=== PATIENT | male | born 1965 | race African-American/Black ===

== ENCOUNTER 2016-09-16 10:59 | Emergency (ER) | payer OTHER ==
[2016-09-16 11:08] VITALS: TEMP 98.2; BMI 32.5
[2016-09-16] MEDS ORDERED: ASPIRIN 81 MG CHEWABLE TABLETS PO ONE (12:06)
[2016-09-16] MEDS ORDERED: NITROGLYCERIN SUBLINGUAL 1/150 0.4 MG TAB SL PRN (12:07)
--- NOTE | 2016-09-16 12:26 | PDOC ---
[id number] Source: Patient Exam Limitations: No Limitations - History of Present Illness Presenting Symptoms: Chest Pain, Nausea, Short of Breath (left sided with palpitations) Timing/Duration: reports: constant (pressure like sensation left chest since last night constant with intermittent sharp pain left sided chest), getting worse Severity/Quality: reports: moderate, pressure (constant since last night ), other (sharp poke like pain intermittent left chest since last night with palpitations). denies: dull, ingestion, tearing, tightness Location: reports: substernal Chest Pain Radiation: reports: no radiation Activities at Onset: reports: none Prior Chest Pain/Cardiac Workup: reports: Cardiac Cath. denies: Pulmonary Embolism Modifying Factors: improves with: other (nothing ) Nitro Today/Relief: Yes: no nitro taken today Aspirin Received prior to arrival (Core Measure): Yes: no aspirin today Beta Felicia given by EMS (Core Measure): No (took this am metropolol ) Beta Felicia taken at Home (Core Measure): Yes (metoprolol 25 mg this ma) Beta Felicia indicated at this time? (Core Measure): No Associated Symptoms: Yes: Chest Pain/pressure, Nausea (has had for one month worse since yesterday ), Palpitations, Shortness of Breath <Sophie Link - Last Filed: 09/18/16 19:40> - General Chief Complaint: Chest Pain Stated Complaint: CHEST PAIN, RAPID HEARTBEAT Time Seen by Provider: 09/16/16 11:51 - History of Present Illness Initial Comments: 09/16/16 12:54 09/16/16 13:00 09/16/16 13:03 Chief complaint: Left-sided chest pain or pressure-like sensation since last night with shortness of breath and intermittent palpitations with sharp poke like sensation intermittently worse this morning, History of present illness: Patient is a 51-year-old male with a history of asthma, anemia, CHF, hypertension, insulin-dependent diabetes, cardiac myopathy , schizoaffective and alcohol/opiates use disorder in the past. She reports that last night he started to feel a pressure-like sensation in chest without any radiation with palpitations intermittently and a sharp poking-like sensation in left chest that worsened this morning. Patient reports also feeling short of breath even at rest since last night worse this morning. Patient also reports that he has had decreased appetite times one month with decreased energy and had seen a GI specialist Dr. Garber for approximately one and a half weeks ago was ordered some tests which she has not had yet. Patient reports that his psychiatric condition has been stable he denies any hallucinations auditory or visual. Patient reports that he lives alone and has been sick quite sedimentary lately. Patient does not have any swelling of his legs. And denies any recent surgeries or denies any history of DVTs or PEs or being on any hormnonal therapy or any recent travel. Reports that he took his blood pressure medication this morning and does not understand why he still has left sided pressure-like sensation in his chest with palpitations. Patient is asking for pain medication patient is able to speak in complete sentences without any noticeable shortness of breath. Pt. denies any drug or alcohol use for a long time (would not specify the exact time) 09/16/16 14:30 (Sophie Link) Past History <Kerry Pizarro - Last Filed: 09/16/16 20:18> - Past Medical History Anemia: Yes (FEOSOL) Asthma: Yes (on MDI) Cancer: No Cardiac Disorders: Yes (h/o OK 2010 has CHF) CVA: No COPD: No CHF: No Dementia: No Diabetes: Yes (on a sliding scale with meals and levemir HS) GI Disorders: No Disorders: No HTN: Yes (on meds.) Hypercholesterolemia: No Kidney Stones: No Liver Disease: No Suicide Attempt (Hx): No Seizures: Yes (pt states he had a seizure on saturday) Thyroid Disease: No - Surgical History Abdominal Surgery: No Appendectomy: Yes (08/2013) Cardiac Surgery: No Cholecystectomy: No Lung Surgery: No Neurologic Surgery: No Orthopedic Surgery: No - Reproductive History Testicular Surgery: No - Immunization History Immunization Up to Date: Yes - Psycho/Social/Smoking Cessation Hx Anxiety: Yes Suicidal Ideation: No Smoking History: Current every day smoker Have you smoked in the past 12 months: Yes Number of Cigarettes Smoked Daily: 7 Cigars Per Day: 0 Information on smoking cessation initiated: No 'Breaking Loose' booklet given: 01/05/16 Hx Alcohol Use: Yes Drug/Substance Use Hx: Yes (HEROIN) Substance Use Type: Alcohol, Heroin Hx Substance Use Treatment: Yes <Sophie Link - Last Filed: 09/18/16 19:40> - Past Medical History Allergies/Adverse Reactions: Allergies Allergy/AdvReac Type Severity Reaction Status Date / Time Penicillins Allergy Intermediate Hives Verified 09/16/16 11:03 quetiapine fumarate AdvReac Intermediate Verified 09/16/16 11:03 [From Seroquel] Home Medications: Ambulatory Orders Aspirin [ASA -] 81 mg PO DAILY 07/12/16 Insulin Aspart [Novolog] 10 unit SQ TIDCM 07/12/16 Losartan/Hydrochlorothiazide [Hyzaar 50-12.5 Tablet] 1 each PO DAILY 07/12/16 Insulin (Levemir) [Levemir Flexpen -] 7 units SQ BID #1 pen 07/16/16 Insulin (Levemir) [Levemir Vial] 7 units SQ AM ml 07/16/16 Insulin (Levemir) [Levemir Vial] 35 units SQ HS ml 07/16/16 Metoprolol Succinate [Toprol XL -] 25 mg PO DAILY tab.sr.24h 07/16/16 Amlodipine Besylate 10 mg PO DAILY 09/16/16 Tramadol HCl [Ultram] 50 mg PO Q6H PRN #12 tablet MDD 4 09/16/16 Comment:: 09/16/16 12:31 h/o schizoaffective d/o (Sophie Link) Cardiac Specific PMH - Complaint Specific PMHX Cardiac Stent: No Myocardial Infarction: Yes (2010 per pt. ) Pacemaker: No <Sophie Link - Last Filed: 09/18/16 19:40> Review of Systems - Review of Systems Able to Perform ROS?: Yes Constitutional: Yes: Loss of Appetite (one month ) HEENTM: No: Symptoms Reported Respiratory: Yes: Shortness of Breath, SOB with Exertion, SOB at Rest. No: Cough, Stridor, Wheezing, Productive cough, Hemoptysis Cardiac (ROS): Yes: Chest Pain (left sided since last night ), Palpitations ( since last night ). No: Irregular Heart Rate, Lightheadedness, Syncope, Chest Tightness ABD/GI: Yes: Nausea, Poor Appetite (for one month ), Other (intermittent mid epigastric and rt. upper quad tenderness intermitent for one month none presently ). No: Diarrhea : No: Symptoms Reported Musculoskeletal: No: Symptoms Reported Integumentary: No: Symptoms Reported Neurological: No: Symptoms reported <Sophie Link - Last Filed: 09/18/16 19:40> *Physical Exam - Physical Exam General Appearance: Yes: Appropriately Dressed Neck: negative: Lymphadenopathy (R), Lymphadenopathy (L) Respiratory/Chest: positive: Lungs Clear, Normal Breath Sounds. negative: Chest Tender, Respiratory Distress Cardiovascular: positive: Regular Rhythm, Regular Rate, S1, S2, Tachycardia Gastrointestinal/Abdominal: positive: Normal Bowel Sounds, Soft. negative: Tender, Organomegaly, Pulsatile Mass, Increased Bowel Sounds, Decreased BS, Distended, Guarding, Rebound, Tenderness, Hepatomegaly, Spleenomegaly Neurologic: positive: Alert, Normal Response, Responsive <Sophie Link - Last Filed: 09/18/16 19:40> - Vital Signs Last Vital Signs Temp Pulse Resp BP Pulse Ox 98.2 F 113 H 18 153/89 99 09/16/16 11:04 09/16/16 20:07 09/16/16 20:07 09/16/16 20:07 09/16/16 20:07 Heart Score/ECG Review <Kerry Pizarro - Last Filed: 09/16/16 20:18> <Sophie Link - Last Filed: 09/18/16 19:40> - ECG Impressions Comment:: 09/16/16 14:[address] Fadi Ramirez sinus tachycardia 105 bpm (Sophie Link) ED Treatment Course - LABORATORY CBC & Chemistry Diagram: 09/16/16 11:45 09/16/16 11:45 <Kerry Pizarro - Last Filed: 09/16/16 20:18> - LABORATORY CBC & Chemistry Diagram: 09/16/16 11:45 09/16/16 11:45 <Sophie Link - Last Filed: 09/18/16 19:40> - ADDITIONAL ORDERS Additional order review: 09/16/16 11:45 RBC 5.64 H MCV 69.3 L MCHC 32.2 RDW 16.7 H MPV 8.6 Neutrophils % 68.9 D Lymphocytes % 20.1 D Monocytes % 7.6 Eosinophils % 2.5 Basophils % 0.9 - Medications Given in the ED: ED Medications Discontinued Medications Generic Name Dose Route Start Last Admin Trade Name Freq PRN Reason Stop Dose Admin Aspirin 81 mg 09/16/16 12:06 09/16/16 12:50 Asa - PO 09/16/16 12:07 81 mg ONCE ONE Administration Diazepam 10 mg 09/16/16 20:50 09/16/16 20:56 Valium - PO 09/16/16 20:51 10 mg ONCE ONE Administration Ketorolac Tromethamine 60 mg 09/16/16 13:02 09/16/16 14:02 Toradol Injection - IM 09/16/16 13:03 Not Given NOW ONE Metoprolol Tartrate 25 mg 09/16/16 20:50 09/16/16 20:56 Lopressor - PO 09/16/16 20:51 25 mg ONCE ONE Administration Nitroglycerin 0.4 mg 09/16/16 12:07 09/16/16 13:36 Nitrostat - SL 0.4 mg Q5M PRN Administration FOR CHEST PAIN Progress Note <Kerry Pizarro - Last Filed: 09/16/16 20:18> <Sophie Link - Last Filed: 09/18/16 19:40> - Progress Note Progress Note: 2019: Spoke with patient regarding care. Patient states that his blood pressure is high and his heart rate (113) is also high. I explained to patient that he has been here for 7 hours, and being angry can cause your blood pressure and heart rate to increase. I also explained that it was time to take his second dose of medications. Patient response " I dont think the first dose worked." I offered to call his PMD to explain case, patient refused and asked that his IV be removed. Patient then asked to be d/c'd. (Kerry Pizarro) Medical Decision Making <Kerry Pizarro - Last Filed: 09/16/16 20:18> <Sophie Link - Last Filed: 09/18/16 19:40> - Medical Decision Making Patient is a 51-year-old male with a history of asthma, anemia, CHF, hypertension, insulin-dependent diabetes, cardiac myopathy, schizoaffective and alcohol/opiates use disorder in the past. She reports that last night he started to feel a pressure-like sensation in chest without any radiation with palpitations intermittently and a sharp poking-like sensation in left chest that worsened this morning. Patient reports also feeling short of breath even at rest since last night worse this morning. Patient also reports that he has had decreased appetite times one month with decreased energy and had seen a GI specialist Dr. Garber for approximately one and a half weeks ago was ordered some tests which she has not had yet. Patient reports that his psychiatric condition has been stable he denies any hallucinations auditory or visual. Patient reports that he lives alone and has been sick quite sedimentary lately. Patient does not have any swelling of his legs. And denies any recent surgeries. Or denies any history of DVTs or PEs or being on any hormnonal therapy or any recent travel. Reports that he took his blood pressure medication this morning and does not understand why he still has left sided pressure-like sensation in his chest with palpitations. Patient is asking for pain medication patient is able to speak in complete sentences without any noticeable shortness of breath.Pt. offered toradol for pain does not want this, requesting something else. Differential ATypical chest pain cardiac cause of shortness of breath/tachycardia R/O PE however low suspicion of PE R/O CHF ASA 81 MG PO NOW NITROGLYCERIN 0.4 MG SL x 3 PRN CHEST PAIN Q5 MINUTES CBC WITH DIFF CMP CARDIAC ENZYMES D-DIMER XRAY CHEST PA/LATERAL no abnormality noted EKG REVIEWED VENT RATE 105 BPM TORADOL 60 MG IM DOES NOT WANT IT PT. BECAME SLIGHTLY AGITATED STATING, "I'M IN PAIN FOR HOURS I WANT SOMETHING NOW" Dr. Fadi Calvillo spoke to pt. explained to him that a narcotic was not indicated for chest pain at this time 09/16/16 13:00 Laboratory Tests 09/16/16 09/16/16 11:45 11:45 WBC 8.4 RBC 5.64 H Hgb 12.6 Hct 39.1 MCV 69.3 L MCHC 32.2 RDW 16.7 H Plt Count 267 MPV 8.6 Neutrophils % 68.9 D Lymphocytes % 20.1 D Monocytes % 7.6 Eosinophils % 2.5 Basophils % 0.9 Sodium 133 L Potassium 4.1 Chloride 99 Carbon Dioxide 27 Anion Gap 7 L BUN 10 D Creatinine 0.8 Calcium 8.9 Total Bilirubin 0.3 D AST 21 D ALT 42 D Alkaline Phosphatase 82 Creatine Kinase 115 Troponin I < 0.02 Total Protein 7.3 Albumin 3.7 09/16/16 13:08 09/16/16 13:18 09/16/16 13:19 pt. had requested food ate, feeling better 09/16/16 13:21 09/16/16 13:33 09/16/16 14:49 09/16/16 15:02 09/16/16 15:31 will get repeat troponin now urinalysis urine toxicology 09/16/16 15:31 09/16/16 17:14 Laboratory Tests 09/16/16 16:30 Opiates Screen Negative Methadone Screen Negative Barbiturate Screen Negative Phencyclidine Screen Negative Ur Amphetamines Screen Negative MDMA (Ecstasy) Screen Negative Benzodiazepines Screen Negative Cocaine Screen Negative U Marijuana (THC) Screen Negative Laboratory Tests 09/16/16 09/16/16 12:40 15:56 D-Dimer Cancelled Creatine Kinase 118 Troponin I < 0.02 09/16/16 18:00 09/16/16 18:00 Laboratory Tests 09/16/16 16:30 Urine Color Straw Urine Appearance Clear Urine pH 7.0 D Ur Specific [place] 1.031 Urine Protein Negative Urine Glucose (UA) 3+ H Urine Ketones Negative Urine Blood Negative Urine Nitrite Negative Urine Bilirubin Negative Urine Urobilinogen Negative Ur Leukocyte Esterase Negative 09/16/16 19:43 09/16/16 19:49 09/16/16 20:06 09/16/16 20:11 prior to discharge pt. pulse rate 113 BP 153/89 will sign out to TARA Pizarro 09/16/16 20:15 09/18/16 19:40 (Sophie Link) *DC/Admit/Observation/Transfer - Discharge Dispostion Admit: No <Kerry Pizarro - Last Filed: 09/16/16 20:18> <Sophie Link - Last Filed: 09/18/16 19:40> Diagnosis at time of Disposition: Chest pain Qualifiers: Chest pain type: unspecified Qualified Code(s): R07.9 - Chest pain, unspecified - Discharge Dispostion Disposition: HOME Condition at time of disposition: Stable - Prescriptions Prescriptions: Tramadol HCl [Ultram] 50 mg PO Q6H PRN #12 tablet MDD 4 PRN Reason: Pain - Referrals Referrals: Sage Soares [Primary Care Provider] - - Patient Instructions Printed Discharge Instructions: DI for Atypical Chest Pain Additional Instructions: Follow up with Dr. Tadeo tomorrow as recommended. Return if symptoms worsen or any concerns for further evaluation. Print Language: SAMI
[2016-09-16 12:27] LABS: ALBUMIN 3.7 g/dl (3.4-5.0); ANION GAP 7 (8-16); BILIRUBIN,TOTAL 0.3 mg/dL (0.2-1.0); CALCIUM 8.9 mg/dL (8.5-10.1); CO2 27 mmol/L (21-32); CREATININE 0.8 mg/dL (0.7-1.3); GLUCOSE,RANDOM 270 mg/dL (74-106); SGOT/AST 21 U/L (15-37); SGPT/ALT 42 U/L (12-78); TOT PROT 7.3 g/dl (6.4-8.2)
[2016-09-16 12:30] LABS: ALK PHOS 82 U/L (45-117); TROPONIN I < 0.02 ng/ml (0.00-0.05)
[2016-09-16 12:39] LABS: BASOPHIL 0.9 % (0-2.0); EOSINOPHIL 2.5 % (0-4.5); MCH 22.3 pg (25.7-33.7); MCHC 32.2 g/dl (32.0-35.9); MEAN CELL VOLUME 69.3 fl (80-96); MEAN PLT VOLUME 8.6 fl (7.5-11.1); NEUTROPHILS 68.9 % (42.8-82.8); PLATELET COUNT 267 K/MM3 (134-434); RDW 16.7 % (11.9-15.9); WHITE BLOOD COUNT 8.4 K/mm3 (4.0-10.0)
[2016-09-16] MEDS ORDERED: ASPIRIN 81 MG CHEWABLE TABLETS ONE (12:47)
[2016-09-16] MEDS ORDERED: KETOROLAC TROMETHAMINE 60 MG/2 ML VIAL IM ONE (13:02)
[2016-09-16] MEDS ORDERED: KETOROLAC TROMETHAMINE 60 MG/2 ML VIAL ONE (13:04)
[2016-09-16 16:52] LABS: TROPONIN I < 0.02 ng/ml (0.00-0.05)
[2016-09-16 17:03] LABS: URINE APPEARANCE CLEAR; URINE BILIRUBIN NEGATIVE (NEGATIVE); URINE BLOOD NEGATIVE (NEGATIVE); URINE COLOR STRAW; URINE GLUCOSE (UA) 3+ (NEGATIVE); URINE KETONE NEGATIVE (NEGATIVE); URINE LEUK ESTERASE NEGATIVE (NEGATIVE); URINE NITRITE NEGATIVE (NEGATIVE); URINE PROTEIN NEGATIVE (NEGATIVE); URINE UROBILINOGEN NEGATIVE E.U./dl (0.2-1.0)
[2016-09-16 17:15] LABS: URINE MARIJUANA THC NEGATIVE ng/ml (CUTOFF=50)
[2016-09-16 20:07] VITALS: BP 153/89; PULSE 113
[2016-09-16] MEDS ORDERED: METOPROLOL TARTRATE 25 MG TABLET (FP) PO ONE (20:50)
[2016-09-16] MEDS ORDERED: diazePAM 5 MG TABLET PO ONE (20:50)
[2016-09-16] MEDS ORDERED: METOPROLOL TARTRATE 25 MG TABLET (FP) ONE (20:54)
[2016-09-16] MEDS ORDERED: diazePAM 5 MG TABLET ONE (20:54)
--- NOTE | 2016-09-18 17:18 | EKG ---
Test Reason : Blood Pressure : / mmHG Vent. Rate : 105 BPM Atrial Rate : 105 BPM P-R Int : 148 ms QRS Dur : 098 ms QT Int : 356 ms P-R-T Axes : 050 012 055 degrees QTc Int : 470 ms SINUS TACHYCARDIA POSSIBLE LEFT ATRIAL ENLARGEMENT LEFT VENTRICULAR HYPERTROPHY ABNORMAL ECG WHEN COMPARED WITH ECG OF 14-JUL-2016 13:06, NO SIGNIFICANT CHANGE WAS FOUND Confirmed by PERRI SANDERS MD ([id number]) on 09/18/2016 5:18:07 PM Referred By: Confirmed By:PERRI SANDERS MD
== END 2016-09-16 20:29 | disposition home or self-care (01) ==
LOC: JER 10:59
DX: R07.9 Chest pain, unspecified (principal); J45.909 Unspecified asthma, uncomplicated; D64.9 Anemia, unspecified; I25.2 Old myocardial infarction; I11.0 Hypertensive heart disease with heart failure; F17.210 Nicotine dependence, cigarettes, uncomplicated; E11.9 Type 2 diabetes mellitus without complications; Z79.4 Long term (current) use of insulin; F25.9 Schizoaffective disorder, unspecified; F10.10 Alcohol abuse, uncomplicated; F11.10 Opioid abuse, uncomplicated
CPT/HCPCS: 36415; 71010-TC; 80053; 80307; 81003; 82550; 84484; 85025; 85379; 93005; 93010; 99284-25

== ENCOUNTER 2017-11-11 11:48 | Inpatient (IN) | payer OTHER ==
[2017-11-11 13:06] VITALS: BMI 33.0
--- NOTE | 2017-11-11 17:49 | HP ---
CIWA Score - CIWA Score Nausea/Vomitin Muscle Tremors: 2 Anxiety: 2 Agitation: 1-Slight > Activity Paroxysmal Sweats: 2 Orientation: 1-Uncertain about Date Tacttile Disturbances: 1-Very Mild Itch/Numbness Auditory Disturbances: 0-None Visual Disturbances: 0-None Headache: 2-Mild CIWA-Ar Total Score: 13 Admission [facility] Chief Complaint: ETOH withdrawal symptoms. Allergies/Adverse Reactions: Allergies Allergy/AdvReac Type Severity Reaction Status Date / Time Penicillins AdvReac Severe Hives Verified 11/11/17 16:52 quetiapine fumarate AdvReac Severe twitching Verified 11/11/17 16:52 [From Seroquel] History of Present Illness: Patient present with ETOH withdrawal symptoms and cocaine use. Patient started drinking at age 15. Drinks up to 5 pints daily. Last drink this morning. Reports having seizures from ETOH use. Last seizure 3 years ago. Also reports smoking crack/cocaine. Last time he smoked a few days ago. Smokes up to 5-10 bags daily. Starting smoking cocaine at age 19. Also reports nicotine dependence. Was in ER yesterday when he passed out and was discharged last night. PMH includes DM, depression, HTN and peripheral neuropathy. Denies SI/HI and suicide attempts. Denies HIV and Hep C. - Ebola screening Have you traveled outside of the country in the last 21 days: No Have you had contact with anyone from an Ebola affected area: No Have you been sick,other than usual withdrawal symptoms: No Do you have a fever: No - Review of Systems Constitutional: Chills, Night Sweats, Changes in sleep EENT: reports: Blurred Vision Respiratory: reports: No Symptoms reported Cardiac: reports: No Symptoms Reported GI: reports: Diarrhea, Nausea, Poor Fluid Intake : reports: No Symptoms Reported Musculoskeletal: reports: Back Pain, Joint Pain, Muscle Pain Integumentary: reports: Flushing, Sweating Neuro: reports: Headache, Numbness, Seizure, Tremors Endocrine: reports: Unexplained Weight Loss Hematology: reports: Anemia Psychiatric: reports: Anxious, Depressed Patient History - Patient Medical History Hx Anemia: Yes (FEOSOL) Hx Asthma: Yes Hx Chronic Obstructive Pulmonary Disease (COPD): No Hx Cancer: No Hx Cardiac Disorders: No Hx Congestive Heart Failure: Yes Hx Hypertension: Yes Hx Hypercholesterolemia: No Hx Pacemaker: No HX Cerebrovascular Accident: No Hx Seizures: Yes (alcohol related-last episode was in 2016) Hx Dementia: No Hx Diabetes: Yes (IDDM) Hx Gastrointestinal Disorders: Yes (acid reflux) Hx Liver Disease: No Hx Genitourinary Disorders: No Hx Sexually Transmitted Disorders: No Hx Renal Disease (ESRD): No Hx Thyroid Disease: No Hx Human Immunodeficiency Virus (HIV): No Hx Hepatitis C: No Hx Depression: Yes Hx Suicide Attempt: No Hx Bipolar Disorder: Yes (as per Hx on haldol, cogentin, Seroquel and Trazodone ) Hx Schizophrenia: Yes (schizoaffective disorder) - Patient Surgical History Past Surgical History: Yes Hx Neurologic Surgery: No Hx Cataract Extraction: No Hx Cardiac Surgery: No Hx Lung Surgery: No Hx Breast Surgery: No Hx Breast Biopsy: No Hx Abdominal Surgery: No Hx Appendectomy: Yes (08/2013) Hx Cholecystectomy: No Hx Genitourinary Surgery: No Hx Section: No Hx Orthopedic Surgery: No Other Surgical History: corrective left eye sx in 1979 Anesthesia Reaction: No - PPD History Documented Results: Positive w/o proof Results: CXR(neg)08/1916 - Smoking Cessation Smoking history: Current every day smoker Have you smoked in the past 12 months: Yes Aproximately how many cigarettes per day: 40 Cigars Per Day: 0 Hx Chewing Tobacco Use: No Initiated information on smoking cessation: Yes 'Breaking Loose' booklet given: 11/11/17 - Substance & Tx. History Hx Alcohol Use: Yes Hx Substance Use: Yes Substance Use Type: Alcohol, Cocaine - Substances Abused Cocaine Route: Inhalation Frequency: Daily Amount used: $80 Age of first use: 19 Date of Last Use: 11/09/17 Alcohol-rum/vodka Route: Oral Frequency: Daily Amount used: 4-5 pts. Age of first use: 15 Date of Last Use: 11/11/17 Family Disease History - Family Disease History Family Disease History: Diabetes: Mother (HTN, ho mental illness), Brother (1 brother healthy and living), Sister (2 sisters healthy and living), Son, Heart Disease: Mother, Other: Father (Father unknown), Mother Admission Physical Exam BHS - Vital Signs Vital Signs: Vital Signs - 24 hr 11/11/17 13:03 Temperature 98.7 F Pulse Rate 124 H Respiratory 20 Rate Blood Pressure 146/96 - Physical General Appearance: Yes: Disheveled, Intoxicated, Tremorous, Sweating, Anxious HEENTM: Yes: EOMI, Hearing grossly Normal, Normocephalic, Normal Voice, CALISTA, Pharynx Normal Respiratory: Yes: Chest Non-Tender, Lungs Clear, Normal Breath Sounds, No Respiratory Distress, No Accessory Muscle Use Neck: Yes: Within Normal Limits, No masses,lesions,Nodules, Supple Breast: Yes: Breast Exam Deferred Cardiology: Yes: Within Normal Limits, Regular Rhythm, Regular Rate, S1, S2 Abdominal: Yes: Non Tender, Soft Back: Yes: Normal Inspection, Muscle Spasm Musculoskeletal: Yes: Back pain, Muscle Pain Extremities: Yes: Non-Tender, Tremors, Swelling Neurological: Yes: stain maker II-XII NML intact, Alert, Normal Response, Depressed Affect Integumentary: Yes: Normal Color, Warm, Moist Lymphatic: Yes: Within Normal Limits - Diagnostic (1) Alcohol dependence with uncomplicated withdrawal Current Visit: Yes Status: Acute (2) Anemia Current Visit: Yes Status: Chronic Qualifiers: Anemia type: unspecified type Qualified Code(s): D64.9 - Anemia, unspecified (3) Cocaine dependence, uncomplicated Current Visit: Yes Status: Chronic (4) Neuropathy Current Visit: Yes Status: Chronic (5) Nicotine dependence Current Visit: Yes Status: Chronic Qualifiers: Nicotine product type: cigarettes Substance use status: uncomplicated Qualified Code(s): F17.210 - Nicotine dependence, cigarettes, uncomplicated (6) Alcohol related seizure Current Visit: Yes Status: Resolved (7) CHF (congestive heart failure) Current Visit: Yes Status: Chronic Qualifiers: Qualified Code(s): I50.9 - Heart failure, unspecified (8) DM Diabetes mellitus type 2 Current Visit: Yes Status: Chronic (9) Essential hypertension Current Visit: Yes Status: Chronic (10) Gastroesophageal reflux disease Current Visit: Yes Status: Chronic Cleared for Admission S - Detox or Rehab [facility] Level of Care: Medically Managed Detox Regimen/Protocol: Librium [facility] Breath Alcohol Content Breath Alcohol Content: 0.026 Urine Drug Screen - Results Drug Screen Negative: No Urine Drug Screen Results: [place]-Cocaine, BZO-Benzodiazepines
[2017-11-11] MEDS ORDERED: IBUPROFEN 400 MG TABLET (FP) PO PRN (17:59)
[2017-11-11] MEDS ORDERED: hydrOXYzine PAMOATE 50 MG CAPSULE (FP) PO PRN (17:59)
[2017-11-11] MEDS ORDERED: MAG HYDROX/AL HYDROX/SIMETH 30 ML UNIT-DOSE CUP PO PRN (17:59)
[2017-11-11] MEDS ORDERED: NICOTINE POLACRILEX 2 MG GUM BC PRN (17:59)
[2017-11-11] MEDS ORDERED: LOPERAMIDE HCL 2 MG CAPSULE PO PRN (17:59)
[2017-11-11] MEDS ORDERED: MAGNESIUM HYDROX 2400MG/30ML ORAL SUSPENSION 30 ML CUP PO PRN (17:59)
[2017-11-11] MEDS ORDERED: MAGNESIUM CITRATE 300 ML BOTTLE PO PRN (17:59)
[2017-11-11] MEDS ORDERED: guaiFENesin/D-METHORPHAN HB 10 ML UNIT-DOSE CUPS PO PRN (17:59)
[2017-11-11] MEDS ORDERED: MENTHOL/PHENOL 1 EACH UD MM PRN (17:59)
[2017-11-11] MEDS ORDERED: P-EPHED 60MG/TRIPROLIDI 2.5MG TABLET PO PRN (17:59)
[2017-11-11] MEDS ORDERED: ACETAMINOPHEN 325 MG TABLET (FP) PO PRN (17:59)
[2017-11-11] MEDS ORDERED: ALBUTEROL SO4 18 GM HFA INHALER IH PRN (18:02)
[2017-11-11] MEDS ORDERED: chlordiazePOXIDE HCL 25 MG CAPSULE PO ONE (18:03)
--- NOTE | 2017-11-11 19:32 | PN ---
[facility] Progress Note Note: Patient reports withdrawal symptoms and requested additional medication for anxiety. Patient on vistaril PRN which the patient refuse. V/S stable. Continue detox increase fluids water pitcher ordered continue to monitor
[2017-11-11] MEDS ORDERED: INSULIN (NOVOLOG) ASPART 100 UNITS/ML 10ML VIAL ONE (21:37)
[2017-11-11] MEDS ORDERED: MELATONIN 5 MG TABLETS PO PRN (22:00)
[2017-11-11] MEDS: INSULIN SLIDING SCALE (NOVOLOG) 1 VIAL SQ SCH (22:37)
[2017-11-11] MEDS: chlordiazePOXIDE HCL 25 MG CAPSULE PO SCH (22:37)
[2017-11-11] MEDS: GABAPENTIN 300 MG CAPSULE (FP) PO SCH (22:37)
[2017-11-11] MEDS: THIAMINE HCL 100 MG TABLET (FP) PO SCH (22:37)
[2017-11-11 22:58] LABS: URINE APPEARANCE SLCLOUDY; URINE BILIRUBIN NEGATIVE (<2.0 mg/dL); URINE COLOR YELLOW; URINE GLUCOSE (UA) 1+ (NEGATIVE); URINE KETONE NEGATIVE (NEGATIVE); URINE LEUK ESTERASE NEGATIVE (NEGATIVE); URINE NITRITE NEGATIVE (NEGATIVE); URINE UROBILINOGEN NEGATIVE mg/dL (0.2-1.0)
[2017-11-11 23:18] LABS: URINE PROTEIN 1+ (NEGATIVE)
[2017-11-11 23:19] LABS: URINE MUCUS RARE
[2017-11-12] MEDS: chlordiazePOXIDE HCL 25 MG CAPSULE PO SCH ×5 (06:49→22:11)
[2017-11-12] MEDS: GABAPENTIN 300 MG CAPSULE (FP) PO SCH ×3 (06:50→22:11)
[2017-11-12] MEDS ORDERED: INSULIN (NOVOLOG) ASPART 100 UNITS/ML 10ML VIAL ONE ×4 (07:34→22:13)
[2017-11-12] MEDS: INSULIN SLIDING SCALE (NOVOLOG) 1 VIAL SQ SCH ×4 (07:34→22:14)
[2017-11-12 10:14] LABS: HEMATOCRIT 37.7 % (35.4-49); HEMOGLOBIN 12.3 GM/dL (11.7-16.9); MCH 23.7 pg (25.7-33.7); MCHC 32.5 g/dl (32.0-35.9); MEAN CELL VOLUME 72.8 fl (80-96); MEAN PLT VOLUME 9.6 fl (7.5-11.1); PLATELET COUNT 289 K/MM3 (134-434); RBC 5.17 M/mm3 (4.00-5.60); RDW 16.6 % (11.9-15.9); WHITE BLOOD COUNT 5.5 K/mm3 (4.0-10.0)
[2017-11-12 10:22] LABS: CHLORIDE 103 mmol/L (98-107); POTASSIUM 4.1 mmol/L (3.5-5.1); SODIUM 140 mmol/L (136-145)
[2017-11-12 10:31] LABS: ALK PHOS 71 U/L (45-117); ANION GAP 10 (8-16); BILIRUBIN,TOTAL 0.2 mg/dL (0.2-1.0); BLOOD UREA NITROGEN 19 mg/dL (7-18); CALCIUM 9.2 mg/dL (8.5-10.1); CO2 27 mmol/L (21-32); CREATININE 1.1 mg/dL (0.7-1.3); GLUCOSE,RANDOM 245 mg/dL (74-106); SGOT/AST 31 U/L (15-37); SGPT/ALT 45 U/L (12-78); TOT PROT 7.7 g/dl (6.4-8.2)
[2017-11-12] MEDS ORDERED: ONDANSETRON *ODT* 4 MG TABLET SL PRN (10:59)
--- NOTE | 2017-11-12 11:05 | PN ---
S CIWA - CIWA Score Nausea/Vomitin Muscle Tremors: 3 Anxiety: 4-Mod. Anxious/Guarded Agitation: 1-Slight > Activity Paroxysmal Sweats: No Perspiration Orientation: 0-Oriented Tacttile Disturbances: 2-Mild Itch/Numbness/Burn Auditory Disturbances: 0-None Visual Disturbances: 3-Moderate Sensitivity Headache: 0-None Present CIWA-Ar Total Score: 16 [facility] Progress Note (SOAP) Subjective: Nausea, Tremors, Fatigue, Body Aches. Objective: PATIENT A & O X 2 (UNCERTAIN ABOUT CURRENT DAY / DATE). NO ACUTE DISTRESS. 11/12/17 11:02 Vital Signs Temperature 96 F L 11/12/17 09:21 Pulse Rate 83 11/12/17 09:21 Respiratory Rate 18 11/12/17 09:21 Blood Pressure 151/97 11/12/17 09:21 O2 Sat by Pulse Oximetry (%) Laboratory Tests 11/11/17 11/11/17 11/11/17 17:20 20:52 22:49 WBC RBC Hgb Hct MCV MCH MCHC RDW Plt Count MPV Sodium Potassium Chloride Carbon Dioxide Anion Gap BUN Creatinine Creat Clearance w eGFR POC Glucometer 343 206 Random Glucose Calcium Total Bilirubin AST ALT Alkaline Phosphatase Total Protein Albumin Urine Color Yellow Urine Appearance Slcloudy Urine pH 5.0 D Ur Specific [place] 1.029 Urine Protein 1+ H Urine Glucose (UA) 1+ H Urine Ketones Negative Urine Blood Negative Urine Nitrite Negative Urine Bilirubin Negative Urine Urobilinogen Negative Ur Leukocyte Esterase Negative Urine WBC (Auto) 1 Urine RBC (Auto) 1 Urine Mucus Rare 11/12/17 11/12/17 11/12/17 05:52 06:00 06:00 WBC 5.5 RBC 5.17 Hgb 12.3 Hct 37.7 MCV 72.8 L MCH 23.7 L MCHC 32.5 RDW 16.6 H D Plt Count 289 MPV 9.6 Sodium 140 Potassium 4.1 Chloride 103 Carbon Dioxide 27 Anion Gap 10 BUN 19 H D Creatinine 1.1 D Creat Clearance w eGFR > 60 POC Glucometer 192 Random Glucose 245 H D Calcium 9.2 Total Bilirubin 0.2 D AST 31 ALT 45 Alkaline Phosphatase 71 D Total Protein 7.7 Albumin 4.0 D Urine Color Urine Appearance Urine pH Ur Specific [place] Urine Protein Urine Glucose (UA) Urine Ketones Urine Blood Urine Nitrite Urine Bilirubin Urine Urobilinogen Ur Leukocyte Esterase Urine WBC (Auto) Urine RBC (Auto) Urine Mucus LABS NOTED. RPR RESULT PENDING. 11/12/17 11:04 Assessment: 11/12/17 11:03 WITHDRAWAL SYMPTOMS. Plan: CONTINUE DETOX.
[2017-11-12] MEDS: amLODIPine BESYLATE 10 MG TABLET (FP) PO SCH (11:24)
[2017-11-12] MEDS: metoPROLOL SUCCINATE 25 MG TAB.SR.24H (FP) PO SCH (11:24)
[2017-11-12] MEDS: ASPIRIN 81 MG CHEWABLE TABLETS PO SCH (11:24)
[2017-11-12] MEDS: PRENATAL VITAMINS W/ FOLIC ACID TABLET (FP) PO SCH (11:24)
[2017-11-12] MEDS: NICOTINE 21 MG/24 HOURS TOPICAL PATCH TD SCH (11:29)
[2017-11-12] MEDS: LOSARTAN 50MG/HCTZ 12.5MG 1 TAB (FP) PO SCH (11:29)
--- NOTE | 2017-11-12 12:01 | EKG ---
Test Reason : Blood Pressure : / mmHG Vent. Rate : 109 BPM Atrial Rate : 109 BPM P-R Int : 140 ms QRS Dur : 094 ms QT Int : 360 ms P-R-T Axes : 063 002 072 degrees QTc Int : 484 ms SINUS TACHYCARDIA POSSIBLE LEFT ATRIAL ENLARGEMENT LEFT VENTRICULAR HYPERTROPHY ABNORMAL ECG WHEN COMPARED WITH ECG OF 29-APR-2017 22:45, NO SIGNIFICANT CHANGE WAS FOUND Confirmed by MD CHERRIE, MARLENE ([id number]) on 11/12/2017 12:01:02 PM Referred By: Confirmed By:MARLENE GRIER MD
[2017-11-12] MEDS: chlordiazePOXIDE HCL 25 MG CAPSULE PO PRN (15:55)
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
[2017-11-12] MEDS: traZODone HCL 50 MG TABLET (FP) PO SCH (22:11)
[2017-11-12] MEDS: THIAMINE HCL 100 MG TABLET (FP) PO SCH (22:11)
[2017-11-13] MEDS: chlordiazePOXIDE HCL 25 MG CAPSULE PO SCH ×3 (06:24→17:55)
[2017-11-13] MEDS: GABAPENTIN 300 MG CAPSULE (FP) PO SCH ×3 (06:53→22:08)
[2017-11-13] MEDS ORDERED: INSULIN (NOVOLOG) ASPART 100 UNITS/ML 10ML VIAL ONE ×2 (06:54→17:27)
[2017-11-13] MEDS: INSULIN SLIDING SCALE (NOVOLOG) 1 VIAL SQ SCH ×4 (06:57→23:14)
[2017-11-13] MEDS: LOSARTAN 50MG/HCTZ 12.5MG 1 TAB (FP) PO SCH (11:03)
[2017-11-13] MEDS: amLODIPine BESYLATE 10 MG TABLET (FP) PO SCH (11:03)
[2017-11-13] MEDS: metoPROLOL SUCCINATE 25 MG TAB.SR.24H (FP) PO SCH (11:03)
[2017-11-13] MEDS: NICOTINE 21 MG/24 HOURS TOPICAL PATCH TD SCH (11:03)
[2017-11-13] MEDS: PRENATAL VITAMINS W/ FOLIC ACID TABLET (FP) PO SCH (11:03)
[2017-11-13] MEDS: ASPIRIN 81 MG CHEWABLE TABLETS PO SCH (11:03)
[2017-11-13] MEDS: chlordiazePOXIDE HCL 25 MG CAPSULE PO PRN (13:21)
--- NOTE | 2017-11-13 14:17 | PN ---
S CIWA - CIWA Score Nausea/Vomitin Muscle Tremors: 2 Anxiety: 3 Agitation: 3 Paroxysmal Sweats: No Perspiration Orientation: 0-Oriented Tacttile Disturbances: 2-Mild Itch/Numbness/Burn Auditory Disturbances: 0-None Visual Disturbances: 1-Very Mild Sensitivity Headache: 0-None Present CIWA-Ar Total Score: 14 BHS Progress Note (SOAP) Subjective: Body Aches, Anxious, Nausea, Tremors. Objective: PATIENT A & O X 3. NO ACUTE DISTRESS. 11/13/17 14:18 Vital Signs Temperature 97.2 F L 11/13/17 09:32 Pulse Rate 80 11/13/17 09:32 Respiratory Rate 20 11/13/17 09:32 Blood Pressure 130/85 11/13/17 09:32 O2 Sat by Pulse Oximetry (%) Laboratory Tests 11/11/17 11/11/17 11/11/17 17:20 20:52 22:49 WBC RBC Hgb Hct MCV MCH MCHC RDW Plt Count MPV Sodium Potassium Chloride Carbon Dioxide Anion Gap BUN Creatinine Creat Clearance w eGFR POC Glucometer 343 206 Random Glucose Calcium Total Bilirubin AST ALT Alkaline Phosphatase Total Protein Albumin Urine Color Yellow Urine Appearance Slcloudy Urine pH 5.0 D Ur Specific [place] 1.029 Urine Protein 1+ H Urine Glucose (UA) 1+ H Urine Ketones Negative Urine Blood Negative Urine Nitrite Negative Urine Bilirubin Negative Urine Urobilinogen Negative Ur Leukocyte Esterase Negative Urine WBC (Auto) 1 Urine RBC (Auto) 1 Urine Mucus Rare RPR Titer 11/12/17 11/12/17 11/12/17 05:52 06:00 06:00 WBC 5.5 RBC 5.17 Hgb 12.3 Hct 37.7 MCV 72.8 L MCH 23.7 L MCHC 32.5 RDW 16.6 H D Plt Count 289 MPV 9.6 Sodium 140 Potassium 4.1 Chloride 103 Carbon Dioxide 27 Anion Gap 10 BUN 19 H D Creatinine 1.1 D Creat Clearance w eGFR > 60 POC Glucometer 192 Random Glucose 245 H D Calcium 9.2 Total Bilirubin 0.2 D AST 31 ALT 45 Alkaline Phosphatase 71 D Total Protein 7.7 Albumin 4.0 D Urine Color Urine Appearance Urine pH Ur Specific [place] Urine Protein Urine Glucose (UA) Urine Ketones Urine Blood Urine Nitrite Urine Bilirubin Urine Urobilinogen Ur Leukocyte Esterase Urine WBC (Auto) Urine RBC (Auto) Urine Mucus RPR Titer 11/12/17 11/12/17 11/12/17 06:00 11:32 16:40 WBC RBC Hgb Hct MCV MCH MCHC RDW Plt Count MPV Sodium Potassium Chloride Carbon Dioxide Anion Gap BUN Creatinine Creat Clearance w eGFR POC Glucometer 158 173 Random Glucose Calcium Total Bilirubin AST ALT Alkaline Phosphatase Total Protein Albumin Urine Color Urine Appearance Urine pH Ur Specific [place] Urine Protein Urine Glucose (UA) Urine Ketones Urine Blood Urine Nitrite Urine Bilirubin Urine Urobilinogen Ur Leukocyte Esterase Urine WBC (Auto) Urine RBC (Auto) Urine Mucus RPR Titer Nonreactive 11/12/17 11/13/17 20:29 06:23 WBC RBC Hgb Hct MCV MCH MCHC RDW Plt Count MPV Sodium Potassium Chloride Carbon Dioxide Anion Gap BUN Creatinine Creat Clearance w eGFR POC Glucometer 166 159 Random Glucose Calcium Total Bilirubin AST ALT Alkaline Phosphatase Total Protein Albumin Urine Color Urine Appearance Urine pH Ur Specific [place] Urine Protein Urine Glucose (UA) Urine Ketones Urine Blood Urine Nitrite Urine Bilirubin Urine Urobilinogen Ur Leukocyte Esterase Urine WBC (Auto) Urine RBC (Auto) Urine Mucus RPR Titer LABS NOTED. Assessment: 11/13/17 14:19 WITHDRAWAL SYMPTOMS. Plan: CONTINUE DETOX. INCREASE DAILY PO FLUID INTAKE.
[2017-11-13] MEDS: THIAMINE HCL 100 MG TABLET (FP) PO SCH (22:08)
[2017-11-13] MEDS: chlordiazePOXIDE 5 MG CAPSULE PO SCH (22:08)
[2017-11-13] MEDS: traZODone HCL 50 MG TABLET (FP) PO SCH (22:08)
[2017-11-14] MEDS: chlordiazePOXIDE 5 MG CAPSULE PO SCH ×3 (07:18→17:52)
[2017-11-14] MEDS: GABAPENTIN 300 MG CAPSULE (FP) PO SCH ×3 (07:19→22:13)
[2017-11-14] MEDS: INSULIN SLIDING SCALE (NOVOLOG) 1 VIAL SQ SCH ×4 (07:20→22:13)
[2017-11-14] MEDS ORDERED: INSULIN (NOVOLOG) ASPART 100 UNITS/ML 10ML VIAL ONE ×4 (07:36→22:01)
[2017-11-14] MEDS: LOSARTAN 50MG/HCTZ 12.5MG 1 TAB (FP) PO SCH (10:14)
[2017-11-14] MEDS: metoPROLOL SUCCINATE 25 MG TAB.SR.24H (FP) PO SCH (10:14)
[2017-11-14] MEDS: ASPIRIN 81 MG CHEWABLE TABLETS PO SCH (10:14)
[2017-11-14] MEDS: amLODIPine BESYLATE 10 MG TABLET (FP) PO SCH (10:14)
[2017-11-14] MEDS: PRENATAL VITAMINS W/ FOLIC ACID TABLET (FP) PO SCH (10:14)
[2017-11-14] MEDS: NICOTINE 21 MG/24 HOURS TOPICAL PATCH TD SCH (10:17)
--- NOTE | 2017-11-14 11:40 | PN ---
BHS Progress Note (SOAP) Subjective: Tremors, Body Aches, Interrupted Sleep. Objective: PATIENT A & O X 3. NO ACUTE DISTRESS. 11/14/17 11:40 Vital Signs Temperature 98.6 F 11/14/17 09:32 Pulse Rate 83 11/14/17 09:32 Respiratory Rate 20 11/14/17 09:32 Blood Pressure 130/80 11/14/17 09:32 O2 Sat by Pulse Oximetry (%) Laboratory Tests 11/11/17 11/11/17 11/11/17 17:20 20:52 22:49 WBC RBC Hgb Hct MCV MCH MCHC RDW Plt Count MPV Sodium Potassium Chloride Carbon Dioxide Anion Gap BUN Creatinine Creat Clearance w eGFR POC Glucometer 343 206 Random Glucose Calcium Total Bilirubin AST ALT Alkaline Phosphatase Total Protein Albumin Urine Color Yellow Urine Appearance Slcloudy Urine pH 5.0 D Ur Specific [place] 1.029 Urine Protein 1+ H Urine Glucose (UA) 1+ H Urine Ketones Negative Urine Blood Negative Urine Nitrite Negative Urine Bilirubin Negative Urine Urobilinogen Negative Ur Leukocyte Esterase Negative Urine WBC (Auto) 1 Urine RBC (Auto) 1 Urine Mucus Rare RPR Titer 11/12/17 11/12/17 11/12/17 05:52 06:00 06:00 WBC 5.5 RBC 5.17 Hgb 12.3 Hct 37.7 MCV 72.8 L MCH 23.7 L MCHC 32.5 RDW 16.6 H D Plt Count 289 MPV 9.6 Sodium 140 Potassium 4.1 Chloride 103 Carbon Dioxide 27 Anion Gap 10 BUN 19 H D Creatinine 1.1 D Creat Clearance w eGFR > 60 POC Glucometer 192 Random Glucose 245 H D Calcium 9.2 Total Bilirubin 0.2 D AST 31 ALT 45 Alkaline Phosphatase 71 D Total Protein 7.7 Albumin 4.0 D Urine Color Urine Appearance Urine pH Ur Specific [place] Urine Protein Urine Glucose (UA) Urine Ketones Urine Blood Urine Nitrite Urine Bilirubin Urine Urobilinogen Ur Leukocyte Esterase Urine WBC (Auto) Urine RBC (Auto) Urine Mucus RPR Titer 11/12/17 11/12/17 11/12/17 06:00 11:32 16:40 WBC RBC Hgb Hct MCV MCH MCHC RDW Plt Count MPV Sodium Potassium Chloride Carbon Dioxide Anion Gap BUN Creatinine Creat Clearance w eGFR POC Glucometer 158 173 Random Glucose Calcium Total Bilirubin AST ALT Alkaline Phosphatase Total Protein Albumin Urine Color Urine Appearance Urine pH Ur Specific [place] Urine Protein Urine Glucose (UA) Urine Ketones Urine Blood Urine Nitrite Urine Bilirubin Urine Urobilinogen Ur Leukocyte Esterase Urine WBC (Auto) Urine RBC (Auto) Urine Mucus RPR Titer Nonreactive 11/12/17 11/13/17 11/13/17 20:29 06:23 16:43 WBC RBC Hgb Hct MCV MCH MCHC RDW Plt Count MPV Sodium Potassium Chloride Carbon Dioxide Anion Gap BUN Creatinine Creat Clearance w eGFR POC Glucometer 166 159 240 Random Glucose Calcium Total Bilirubin AST ALT Alkaline Phosphatase Total Protein Albumin Urine Color Urine Appearance Urine pH Ur Specific [place] Urine Protein Urine Glucose (UA) Urine Ketones Urine Blood Urine Nitrite Urine Bilirubin Urine Urobilinogen Ur Leukocyte Esterase Urine WBC (Auto) Urine RBC (Auto) Urine Mucus RPR Titer 11/13/17 11/14/17 21:30 06:27 WBC RBC Hgb Hct MCV MCH MCHC RDW Plt Count MPV Sodium Potassium Chloride Carbon Dioxide Anion Gap BUN Creatinine Creat Clearance w eGFR POC Glucometer 198 252 Random Glucose Calcium Total Bilirubin AST ALT Alkaline Phosphatase Total Protein Albumin Urine Color Urine Appearance Urine pH Ur Specific [place] Urine Protein Urine Glucose (UA) Urine Ketones Urine Blood Urine Nitrite Urine Bilirubin Urine Urobilinogen Ur Leukocyte Esterase Urine WBC (Auto) Urine RBC (Auto) Urine Mucus RPR Titer LABS NOTED. Assessment: 11/14/17 11:40 WITHDRAWAL SYMPTOMS. Plan: CONTINUE DETOX. PATIENT SCHEDULED FOR DISCHARGE TOMORROW.
[2017-11-14] MEDS: chlordiazePOXIDE HCL 25 MG CAPSULE PO PRN (15:08)
[2017-11-14] MEDS: THIAMINE HCL 100 MG TABLET (FP) PO SCH (22:13)
[2017-11-14] MEDS: chlordiazePOXIDE HCL 10 MG CAPSULE PO SCH (22:13)
[2017-11-14] MEDS: traZODone HCL 50 MG TABLET (FP) PO SCH (22:13)
[2017-11-15] MEDS ORDERED: chlordiazePOXIDE 5 MG CAPSULE ONE (04:10)
[2017-11-15] MEDS: chlordiazePOXIDE HCL 10 MG CAPSULE PO SCH ×3 (06:02→17:15)
[2017-11-15] MEDS: GABAPENTIN 300 MG CAPSULE (FP) PO SCH ×2 (06:02→14:50)
[2017-11-15] MEDS: INSULIN SLIDING SCALE (NOVOLOG) 1 VIAL SQ SCH ×3 (07:32→17:15)
[2017-11-15] MEDS: LOSARTAN 50MG/HCTZ 12.5MG 1 TAB (FP) PO SCH (10:48)
[2017-11-15] MEDS: amLODIPine BESYLATE 10 MG TABLET (FP) PO SCH (10:48)
[2017-11-15] MEDS: PRENATAL VITAMINS W/ FOLIC ACID TABLET (FP) PO SCH (10:48)
[2017-11-15] MEDS: ASPIRIN 81 MG CHEWABLE TABLETS PO SCH (10:48)
[2017-11-15] MEDS: metoPROLOL SUCCINATE 25 MG TAB.SR.24H (FP) PO SCH (10:48)
[2017-11-15] MEDS: NICOTINE 21 MG/24 HOURS TOPICAL PATCH TD SCH (10:48)
[2017-11-15] MEDS ORDERED: INSULIN (NOVOLOG) ASPART 100 UNITS/ML 10ML VIAL ONE ×2 (11:43→17:09)
--- NOTE | 2017-11-15 12:25 | PN ---
BHS Progress Note (SOAP) Subjective: Patient reports body aches. Patient denies any other Detox symptoms at this time. Objective: PATIENT A & O X 3, OBSERVED AMBULATING ON UNIT. NO ACUTE DISTRESS. 11/15/17 12:24 Vital Signs Temperature 95.9 F L 11/15/17 09:32 Pulse Rate 82 11/15/17 09:32 Respiratory Rate 18 11/15/17 09:32 Blood Pressure 112/71 11/15/17 09:32 O2 Sat by Pulse Oximetry (%) Laboratory Tests 11/11/17 11/11/17 11/11/17 17:20 20:52 22:49 WBC RBC Hgb Hct MCV MCH MCHC RDW Plt Count MPV Sodium Potassium Chloride Carbon Dioxide Anion Gap BUN Creatinine Creat Clearance w eGFR POC Glucometer 343 206 Random Glucose Calcium Total Bilirubin AST ALT Alkaline Phosphatase Total Protein Albumin Urine Color Yellow Urine Appearance Slcloudy Urine pH 5.0 D Ur Specific [place] 1.029 Urine Protein 1+ H Urine Glucose (UA) 1+ H Urine Ketones Negative Urine Blood Negative Urine Nitrite Negative Urine Bilirubin Negative Urine Urobilinogen Negative Ur Leukocyte Esterase Negative Urine WBC (Auto) 1 Urine RBC (Auto) 1 Urine Mucus Rare RPR Titer 11/12/17 11/12/17 11/12/17 05:52 06:00 06:00 WBC 5.5 RBC 5.17 Hgb 12.3 Hct 37.7 MCV 72.8 L MCH 23.7 L MCHC 32.5 RDW 16.6 H D Plt Count 289 MPV 9.6 Sodium 140 Potassium 4.1 Chloride 103 Carbon Dioxide 27 Anion Gap 10 BUN 19 H D Creatinine 1.1 D Creat Clearance w eGFR > 60 POC Glucometer 192 Random Glucose 245 H D Calcium 9.2 Total Bilirubin 0.2 D AST 31 ALT 45 Alkaline Phosphatase 71 D Total Protein 7.7 Albumin 4.0 D Urine Color Urine Appearance Urine pH Ur Specific [place] Urine Protein Urine Glucose (UA) Urine Ketones Urine Blood Urine Nitrite Urine Bilirubin Urine Urobilinogen Ur Leukocyte Esterase Urine WBC (Auto) Urine RBC (Auto) Urine Mucus RPR Titer 11/12/17 11/12/17 11/12/17 06:00 11:32 16:40 WBC RBC Hgb Hct MCV MCH MCHC RDW Plt Count MPV Sodium Potassium Chloride Carbon Dioxide Anion Gap BUN Creatinine Creat Clearance w eGFR POC Glucometer 158 173 Random Glucose Calcium Total Bilirubin AST ALT Alkaline Phosphatase Total Protein Albumin Urine Color Urine Appearance Urine pH Ur Specific [place] Urine Protein Urine Glucose (UA) Urine Ketones Urine Blood Urine Nitrite Urine Bilirubin Urine Urobilinogen Ur Leukocyte Esterase Urine WBC (Auto) Urine RBC (Auto) Urine Mucus RPR Titer Nonreactive 11/12/17 11/13/17 11/13/17 20:29 06:23 16:43 WBC RBC Hgb Hct MCV MCH MCHC RDW Plt Count MPV Sodium Potassium Chloride Carbon Dioxide Anion Gap BUN Creatinine Creat Clearance w eGFR POC Glucometer 166 159 240 Random Glucose Calcium Total Bilirubin AST ALT Alkaline Phosphatase Total Protein Albumin Urine Color Urine Appearance Urine pH Ur Specific [place] Urine Protein Urine Glucose (UA) Urine Ketones Urine Blood Urine Nitrite Urine Bilirubin Urine Urobilinogen Ur Leukocyte Esterase Urine WBC (Auto) Urine RBC (Auto) Urine Mucus RPR Titer 11/13/17 11/14/17 11/14/17 21:30 06:27 11:28 WBC RBC Hgb Hct MCV MCH MCHC RDW Plt Count MPV Sodium Potassium Chloride Carbon Dioxide Anion Gap BUN Creatinine Creat Clearance w eGFR POC Glucometer 198 252 243 Random Glucose Calcium Total Bilirubin AST ALT Alkaline Phosphatase Total Protein Albumin Urine Color Urine Appearance Urine pH Ur Specific [place] Urine Protein Urine Glucose (UA) Urine Ketones Urine Blood Urine Nitrite Urine Bilirubin Urine Urobilinogen Ur Leukocyte Esterase Urine WBC (Auto) Urine RBC (Auto) Urine Mucus RPR Titer 11/14/17 11/14/17 11/15/17 16:33 21:56 11:40 WBC RBC Hgb Hct MCV MCH MCHC RDW Plt Count MPV Sodium Potassium Chloride Carbon Dioxide Anion Gap BUN Creatinine Creat Clearance w eGFR POC Glucometer 224 294 194 Random Glucose Calcium Total Bilirubin AST ALT Alkaline Phosphatase Total Protein Albumin Urine Color Urine Appearance Urine pH Ur Specific [place] Urine Protein Urine Glucose (UA) Urine Ketones Urine Blood Urine Nitrite Urine Bilirubin Urine Urobilinogen Ur Leukocyte Esterase Urine WBC (Auto) Urine RBC (Auto) Urine Mucus RPR Titer LABS NOTED. Assessment: 11/15/17 12:24 COMPLETION OF DETOX REGIMEN. Plan: PATIENT SCHEDULED FOR DISCHARGE FROM DETOX UNIT TODAY. PATIENT WILL GO ON TO [facility] ([place] FOR AFTERCARE.
--- NOTE | 2017-11-15 12:29 | DS ---
[facility] Admission Date: 11/11/17 Discharge Date: 11/15/17 - History Present History: Alcohol Dependence, Cocaine Dependence Additional Comments: PATIENT GOING ON TO [facility] ([email or web address] FOR AFTERCARE. PATIENT WAS DISCHARGED FROM DETOX UNIT TO BE TAKEN OVER TO REHAB UNIT IN STABLE MEDICAL CONDITION. Pertinent Past History: HTN, GERD, IDDM, History of Anemia, CHF, Asthma, History of Seizures (Due to Withdrawal), Nicotine Dependence, Depression, History of Bipolar disorder, History of Schizoaffective Disorder, Neuropathy, PTSD, Insomnia. - Physical Exam Results Vital Signs: Vital Signs Temperature 95.9 F L 11/15/17 09:32 Pulse Rate 82 11/15/17 09:32 Respiratory Rate 18 11/15/17 09:32 Blood Pressure 112/71 11/15/17 09:32 O2 Sat by Pulse Oximetry (%) Pertinent Admission Physical Exam Findings: WITHDRAWAL SYMPTOMS. Laboratory Tests 11/11/17 11/11/17 11/11/17 17:20 20:52 22:49 WBC RBC Hgb Hct MCV MCH MCHC RDW Plt Count MPV Sodium Potassium Chloride Carbon Dioxide Anion Gap BUN Creatinine Creat Clearance w eGFR POC Glucometer 343 206 Random Glucose Calcium Total Bilirubin AST ALT Alkaline Phosphatase Total Protein Albumin Urine Color Yellow Urine Appearance Slcloudy Urine pH 5.0 D Ur Specific [place] 1.029 Urine Protein 1+ H Urine Glucose (UA) 1+ H Urine Ketones Negative Urine Blood Negative Urine Nitrite Negative Urine Bilirubin Negative Urine Urobilinogen Negative Ur Leukocyte Esterase Negative Urine WBC (Auto) 1 Urine RBC (Auto) 1 Urine Mucus Rare RPR Titer 11/12/17 11/12/17 11/12/17 05:52 06:00 06:00 WBC 5.5 RBC 5.17 Hgb 12.3 Hct 37.7 MCV 72.8 L MCH 23.7 L MCHC 32.5 RDW 16.6 H D Plt Count 289 MPV 9.6 Sodium 140 Potassium 4.1 Chloride 103 Carbon Dioxide 27 Anion Gap 10 BUN 19 H D Creatinine 1.1 D Creat Clearance w eGFR > 60 POC Glucometer 192 Random Glucose 245 H D Calcium 9.2 Total Bilirubin 0.2 D AST 31 ALT 45 Alkaline Phosphatase 71 D Total Protein 7.7 Albumin 4.0 D Urine Color Urine Appearance Urine pH Ur Specific [place] Urine Protein Urine Glucose (UA) Urine Ketones Urine Blood Urine Nitrite Urine Bilirubin Urine Urobilinogen Ur Leukocyte Esterase Urine WBC (Auto) Urine RBC (Auto) Urine Mucus RPR Titer 11/12/17 11/12/17 11/12/17 06:00 11:32 16:40 WBC RBC Hgb Hct MCV MCH MCHC RDW Plt Count MPV Sodium Potassium Chloride Carbon Dioxide Anion Gap BUN Creatinine Creat Clearance w eGFR POC Glucometer 158 173 Random Glucose Calcium Total Bilirubin AST ALT Alkaline Phosphatase Total Protein Albumin Urine Color Urine Appearance Urine pH Ur Specific [place] Urine Protein Urine Glucose (UA) Urine Ketones Urine Blood Urine Nitrite Urine Bilirubin Urine Urobilinogen Ur Leukocyte Esterase Urine WBC (Auto) Urine RBC (Auto) Urine Mucus RPR Titer Nonreactive 11/12/17 11/13/17 11/13/17 20:29 06:23 16:43 WBC RBC Hgb Hct MCV MCH MCHC RDW Plt Count MPV Sodium Potassium Chloride Carbon Dioxide Anion Gap BUN Creatinine Creat Clearance w eGFR POC Glucometer 166 159 240 Random Glucose Calcium Total Bilirubin AST ALT Alkaline Phosphatase Total Protein Albumin Urine Color Urine Appearance Urine pH Ur Specific [place] Urine Protein Urine Glucose (UA) Urine Ketones Urine Blood Urine Nitrite Urine Bilirubin Urine Urobilinogen Ur Leukocyte Esterase Urine WBC (Auto) Urine RBC (Auto) Urine Mucus RPR Titer 11/13/17 11/14/17 11/14/17 21:30 06:27 11:28 WBC RBC Hgb Hct MCV MCH MCHC RDW Plt Count MPV Sodium Potassium Chloride Carbon Dioxide Anion Gap BUN Creatinine Creat Clearance w eGFR POC Glucometer 198 252 243 Random Glucose Calcium Total Bilirubin AST ALT Alkaline Phosphatase Total Protein Albumin Urine Color Urine Appearance Urine pH Ur Specific [place] Urine Protein Urine Glucose (UA) Urine Ketones Urine Blood Urine Nitrite Urine Bilirubin Urine Urobilinogen Ur Leukocyte Esterase Urine WBC (Auto) Urine RBC (Auto) Urine Mucus RPR Titer 11/14/17 11/14/17 11/15/17 16:33 21:56 11:40 WBC RBC Hgb Hct MCV MCH MCHC RDW Plt Count MPV Sodium Potassium Chloride Carbon Dioxide Anion Gap BUN Creatinine Creat Clearance w eGFR POC Glucometer 224 294 194 Random Glucose Calcium Total Bilirubin AST ALT Alkaline Phosphatase Total Protein Albumin Urine Color Urine Appearance Urine pH Ur Specific [place] Urine Protein Urine Glucose (UA) Urine Ketones Urine Blood Urine Nitrite Urine Bilirubin Urine Urobilinogen Ur Leukocyte Esterase Urine WBC (Auto) Urine RBC (Auto) Urine Mucus RPR Titer LABS NOTED. - Treatment Hospital Course: Detox Protocol Followed, Detoxed Safely, Responded well, Discharged Condition Good, Rehab Referral Accepted Patient has Accepted a Rehab Referral to: [facility] ([place] . - Medication Discharge Medications: Ambulatory Orders Losartan/Hydrochlorothiazide [Hyzaar 50-12.5 Tablet] 1 each PO DAILY 07/12/16 Metoprolol Succinate [Toprol XL -] 25 mg PO DAILY tab.sr.24h 07/16/16 Albuterol 2.5/Ipratropium 0.5 [Duoneb -] 1 amp NEB Q6H PRN #0 amp 05/03/17 Albuterol Sulfate Inhaler - [Ventolin HFA Inhaler -] 2 puff IH Q4H PRN #1 inhaler 05/03/17 Amlodipine Besylate 10 mg PO DAILY #30 tab 05/03/17 Aspirin [ASA -] 81 mg PO DAILY #30 tab 05/03/17 Gabapentin [Neurontin -] 300 mg PO TID #90 cap 05/03/17 Insulin (Novolog) [Novolog] 0 units SQ TID PRN 11/11/17 Insulin Glargine,Hum.rec.anlog [Lantus Solostar PEN (NF)] 30 units SQ HS Trazodone HCl 100 mg PO HS #30 tablet 11/13/17 - Diagnosis (1) Alcohol dependence with uncomplicated withdrawal Current Visit: Yes Status: Acute (2) Anemia Current Visit: Yes Status: Chronic Qualifiers: Anemia type: unspecified type Qualified Code(s): D64.9 - Anemia, unspecified (3) CHF (congestive heart failure) Current Visit: Yes Status: Chronic (4) Cocaine dependence, uncomplicated Current Visit: Yes Status: Acute (5) DM Diabetes mellitus type 2 Current Visit: Yes Status: Chronic (6) Essential hypertension Current Visit: Yes Status: Chronic (7) Gastroesophageal reflux disease Current Visit: Yes Status: Chronic (8) Neuropathy Current Visit: Yes Status: Chronic (9) Nicotine dependence Current Visit: Yes Status: Acute Qualifiers: Nicotine product type: cigarettes Substance use status: uncomplicated Qualified Code(s): F17.210 - Nicotine dependence, cigarettes, uncomplicated (10) Alcohol related seizure Current Visit: Yes Status: Resolved (11) Insomnia Current Visit: Yes Status: Acute Qualifiers: Insomnia type: unspecified Qualified Code(s): G47.00 - Insomnia, unspecified (12) Substance induced mood disorder Current Visit: Yes Status: Acute (13) PTSD (post-traumatic stress disorder) Current Visit: Yes Status: Chronic (14) Schizoaffective disorder Current Visit: Yes Status: Chronic Qualifiers: Schizoaffective disorder type: unspecified Qualified Code(s): F25.9 - Schizoaffective disorder, unspecified - AMA Did Patient Leave Against Medical Advice: No
[2017-11-15 14:52] VITALS: PULSE 85
[2017-11-15 17:48] VITALS: BP 123/74; TEMP 98.1
== END 2017-11-15 19:42 | disposition other institution (70) | DRG 774 ==
LOC: YASAS 11:48 → Y3N 18:19
PROVIDERS: ADMIT Internal Medicine; ATTEND Internal Medicine
PROC: HZ2ZZZZ Detoxification Services for Substance Abuse Treatment (ICD-10-PCS; principal; 2017-11-11)
DX: F10.230 Alcohol dependence with withdrawal, uncomplicated (principal); F14.20 Cocaine dependence, uncomplicated; F17.210 Nicotine dependence, cigarettes, uncomplicated; F43.10 Post-traumatic stress disorder, unspecified; F31.9 Bipolar disorder, unspecified; F25.9 Schizoaffective disorder, unspecified; F19.24 Other psychoactive substance dependence with psychoactive substance-induced mood disorder; I10 Essential (primary) hypertension; K21.9 Gastro-esophageal reflux disease without esophagitis; E11.9 Type 2 diabetes mellitus without complications; Z79.4 Long term (current) use of insulin; I50.9 Heart failure, unspecified; G62.9 Polyneuropathy, unspecified; G47.00 Insomnia, unspecified; D64.9 Anemia, unspecified; Z59.0 Homelessness
CPT/HCPCS: 36415; 71046-TC-FY; 80053; 81003; 81015; 82962; 85027; 86593; 93005; 93010

== ENCOUNTER 2017-11-15 20:18 | Inpatient (IN) | payer OTHER ==
[2017-11-15] MEDS ORDERED: ALBUTEROL SO4 18 GM HFA INHALER IH PRN ×2 (21:14→21:15)
[2017-11-15] MEDS ORDERED: INSULIN (NOVOLOG) ASPART 100 UNITS/ML 10ML VIAL SQ PRN (21:15)
[2017-11-15] MEDS ORDERED: ALBUTEROL SO4 2.5/IPRATROPIUM 0.5 INH SOL 3 ML VIAL.NEB. NEB PRN (21:15)
[2017-11-15] MEDS ORDERED: MAG HYDROX/AL HYDROX/SIMETH 30 ML UNIT-DOSE CUP PO PRN (21:24)
[2017-11-15] MEDS ORDERED: IBUPROFEN 400 MG TABLET (FP) PO PRN (21:24)
[2017-11-15] MEDS ORDERED: MENTHOL/PHENOL 1 EACH UD MM PRN (21:24)
[2017-11-15] MEDS ORDERED: MAGNESIUM CITRATE 300 ML BOTTLE PO PRN (21:24)
[2017-11-15] MEDS ORDERED: P-EPHED 60MG/TRIPROLIDI 2.5MG TABLET PO PRN (21:24)
[2017-11-15] MEDS ORDERED: NICOTINE POLACRILEX 2 MG GUM BUC PRN (21:24)
[2017-11-15] MEDS ORDERED: guaiFENesin/D-METHORPHAN HB 10 ML UNIT-DOSE CUPS PO PRN (21:24)
[2017-11-15] MEDS ORDERED: LOPERAMIDE HCL 2 MG CAPSULE PO PRN (21:24)
[2017-11-15] MEDS ORDERED: MAGNESIUM HYDROX 2400MG/30ML ORAL SUSPENSION 30 ML CUP PO PRN (21:24)
[2017-11-15] MEDS ORDERED: MELATONIN 5 MG TABLETS PO PRN (22:00)
[2017-11-15] MEDS: THIAMINE HCL 100 MG TABLET (FP) PO SCH (22:07)
[2017-11-15] MEDS: GABAPENTIN 300 MG CAPSULE (FP) PO SCH (22:07)
[2017-11-15] MEDS: traZODone HCL 100 MG TABLET (FP) PO SCH (22:07)
[2017-11-15] MEDS: INSULIN (LEVEMIR) 100 UNITS/ML UNITS SQ SCH (22:09)
[2017-11-16] MEDS: GABAPENTIN 300 MG CAPSULE (FP) PO SCH ×3 (06:24→21:46)
[2017-11-16] MEDS: hydrOXYzine PAMOATE 25 MG CAPSULE (FP) PO PRN ×2 (06:27→09:43)
[2017-11-16] MEDS: INSULIN SLIDING SCALE (NOVOLOG) 1 VIAL SQ SCH ×4 (06:28→22:49)
[2017-11-16] MEDS ORDERED: PT OWN MED DRAWER 7, Y5N ONE ×2 (08:44→23:05)
[2017-11-16] MEDS: amLODIPine BESYLATE 10 MG TABLET (FP) PO SCH (09:42)
[2017-11-16] MEDS: metoPROLOL SUCCINATE 25 MG TAB.SR.24H (FP) PO SCH (09:42)
[2017-11-16] MEDS: ASPIRIN 81 MG CHEWABLE TABLETS PO SCH (09:42)
[2017-11-16] MEDS: PRENATAL VITAMINS W/ FOLIC ACID TABLET (FP) PO SCH (09:42)
[2017-11-16] MEDS: LOSARTAN 50MG/HCTZ 12.5MG 1 TAB (FP) PO SCH (12:00)
[2017-11-16] MEDS ORDERED: INSULIN (NOVOLOG) ASPART 100 UNITS/ML 10ML VIAL ONE ×2 (12:01→22:52)
[2017-11-16] MEDS: traZODone HCL 100 MG TABLET (FP) PO SCH (21:46)
[2017-11-16] MEDS: THIAMINE HCL 100 MG TABLET (FP) PO SCH (21:46)
[2017-11-16] MEDS: hydrOXYzine PAMOATE 50 MG CAPSULE (FP) PO PRN (21:47)
[2017-11-16] MEDS: INSULIN (LEVEMIR) 100 UNITS/ML UNITS SQ SCH (22:49)
[2017-11-16] MEDS ORDERED: INSULIN (LEVEMIR) 100 UNITS/ML UNITS SQ ONE (22:52)
[2017-11-17] MEDS: GABAPENTIN 300 MG CAPSULE (FP) PO SCH ×3 (07:38→21:32)
[2017-11-17] MEDS: INSULIN SLIDING SCALE (NOVOLOG) 1 VIAL SQ SCH ×4 (08:17→21:41)
[2017-11-17] MEDS ORDERED: PT OWN MED DRAWER 7, Y5N ONE (08:36)
[2017-11-17] MEDS: metoPROLOL SUCCINATE 25 MG TAB.SR.24H (FP) PO SCH (09:47)
[2017-11-17] MEDS: LOSARTAN 50MG/HCTZ 12.5MG 1 TAB (FP) PO SCH (09:47)
[2017-11-17] MEDS: PRENATAL VITAMINS W/ FOLIC ACID TABLET (FP) PO SCH (09:47)
[2017-11-17] MEDS: ASPIRIN 81 MG CHEWABLE TABLETS PO SCH (09:47)
[2017-11-17] MEDS: amLODIPine BESYLATE 10 MG TABLET (FP) PO SCH (09:47)
[2017-11-17] MEDS: hydrOXYzine PAMOATE 50 MG CAPSULE (FP) PO PRN ×2 (09:48→21:39)
[2017-11-17] MEDS ORDERED: INSULIN (NOVOLOG) ASPART 100 UNITS/ML 10ML VIAL ONE ×2 (11:32→21:37)
[2017-11-17] MEDS: THIAMINE HCL 100 MG TABLET (FP) PO SCH (21:32)
[2017-11-17] MEDS: traZODone HCL 100 MG TABLET (FP) PO SCH (21:32)
[2017-11-17] MEDS: INSULIN (LEVEMIR) 100 UNITS/ML UNITS SQ SCH (21:41)
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
[2017-11-18] MEDS: INSULIN SLIDING SCALE (NOVOLOG) 1 VIAL SQ SCH ×4 (07:15→21:29)
[2017-11-18] MEDS: GABAPENTIN 300 MG CAPSULE (FP) PO SCH ×3 (07:15→21:30)
[2017-11-18] MEDS: hydrOXYzine PAMOATE 50 MG CAPSULE (FP) PO PRN ×3 (07:17→21:30)
[2017-11-18] MEDS ORDERED: INSULIN (NOVOLOG) ASPART 100 UNITS/ML 10ML VIAL ONE ×3 (07:18→21:28)
[2017-11-18] MEDS: metoPROLOL SUCCINATE 25 MG TAB.SR.24H (FP) PO SCH (10:43)
[2017-11-18] MEDS: PRENATAL VITAMINS W/ FOLIC ACID TABLET (FP) PO SCH (10:43)
[2017-11-18] MEDS: ASPIRIN 81 MG CHEWABLE TABLETS PO SCH (10:43)
[2017-11-18] MEDS: amLODIPine BESYLATE 10 MG TABLET (FP) PO SCH (10:43)
[2017-11-18] MEDS: LOSARTAN 50MG/HCTZ 12.5MG 1 TAB (FP) PO SCH (10:44)
[2017-11-18] MEDS: ZIPRASIDONE 40 MG CAPSULE (FP) PO SCH (21:30)
[2017-11-18] MEDS: MIRTAZAPINE 15 MG TABLET (FP) PO SCH (21:30)
[2017-11-18] MEDS: THIAMINE HCL 100 MG TABLET (FP) PO SCH (21:30)
[2017-11-18] MEDS: INSULIN (LEVEMIR) 100 UNITS/ML UNITS SQ SCH (21:33)
[2017-11-19] MEDS: GABAPENTIN 300 MG CAPSULE (FP) PO SCH ×3 (06:38→21:30)
[2017-11-19] MEDS: INSULIN SLIDING SCALE (NOVOLOG) 1 VIAL SQ SCH ×4 (07:25→21:38)
[2017-11-19] MEDS: ASPIRIN 81 MG CHEWABLE TABLETS PO SCH (10:10)
[2017-11-19] MEDS: hydrOXYzine PAMOATE 50 MG CAPSULE (FP) PO PRN ×2 (10:10→21:36)
[2017-11-19] MEDS: PRENATAL VITAMINS W/ FOLIC ACID TABLET (FP) PO SCH (10:11)
[2017-11-19] MEDS: ZIPRASIDONE 40 MG CAPSULE (FP) PO SCH ×2 (10:11→21:30)
[2017-11-19] MEDS: amLODIPine BESYLATE 10 MG TABLET (FP) PO SCH (10:11)
[2017-11-19] MEDS: metoPROLOL SUCCINATE 25 MG TAB.SR.24H (FP) PO SCH (10:11)
[2017-11-19] MEDS: LOSARTAN 50MG/HCTZ 12.5MG 1 TAB (FP) PO SCH (10:11)
[2017-11-19] MEDS ORDERED: INSULIN (NOVOLOG) ASPART 100 UNITS/ML 10ML VIAL ONE ×3 (12:33→21:33)
[2017-11-19] MEDS: INSULIN (LEVEMIR) 100 UNITS/ML UNITS SQ SCH (21:30)
[2017-11-19] MEDS: MIRTAZAPINE 15 MG TABLET (FP) PO SCH (21:30)
[2017-11-19] MEDS: THIAMINE HCL 100 MG TABLET (FP) PO SCH (21:30)
[2017-11-19] MEDS: ACETAMINOPHEN 325 MG TABLET (FP) PO PRN (21:34)
[2017-11-20] MEDS: ZIPRASIDONE 40 MG CAPSULE (FP) PO SCH ×2 (09:59→21:21)
[2017-11-20] MEDS: amLODIPine BESYLATE 10 MG TABLET (FP) PO SCH (09:59)
[2017-11-20] MEDS: metoPROLOL SUCCINATE 25 MG TAB.SR.24H (FP) PO SCH (09:59)
[2017-11-20] MEDS: PRENATAL VITAMINS W/ FOLIC ACID TABLET (FP) PO SCH (09:59)
[2017-11-20] MEDS: GABAPENTIN 300 MG CAPSULE (FP) PO SCH ×3 (09:59→21:21)
[2017-11-20] MEDS: LOSARTAN 50MG/HCTZ 12.5MG 1 TAB (FP) PO SCH (09:59)
[2017-11-20] MEDS: ASPIRIN 81 MG CHEWABLE TABLETS PO SCH (09:59)
[2017-11-20] MEDS: INSULIN SLIDING SCALE (NOVOLOG) 1 VIAL SQ SCH ×4 (10:00→21:23)
[2017-11-20] MEDS: hydrOXYzine PAMOATE 50 MG CAPSULE (FP) PO PRN ×3 (10:01→21:21)
--- NOTE | 2017-11-20 12:58 | PN ---
[facility] Progress Note Note: Patient presents with c/o numbness and tingling to feet. Also reports having body aches and muscular pain. Pain level 6/10. Dull ache. Vital Signs Temperature 97.5 F L 11/20/17 06:57 Pulse Rate 81 11/20/17 10:00 Respiratory Rate 18 11/20/17 10:00 Blood Pressure 143/94 11/20/17 10:00 O2 Sat by Pulse Oximetry (%) Obj: General: Resting in bed. In no acute distress. Irritable. Skin: warm and dry. Neuro: alert and oriented x 3. No seizures/tremors reported. A/P: Peripheral neuropathy muscular pain Will continue Gabapentin as ordered start flexeril 5mg TID continue to monitor clinically
[2017-11-20] MEDS: CYCLOBENZAPRINE HCL 5 MG TABLET PO SCH ×2 (14:50→21:21)
[2017-11-20] MEDS ORDERED: INSULIN (NOVOLOG) ASPART 100 UNITS/ML 10ML VIAL ONE ×2 (16:40→22:08)
[2017-11-20] MEDS: MIRTAZAPINE 15 MG TABLET (FP) PO SCH (21:21)
[2017-11-20] MEDS: THIAMINE HCL 100 MG TABLET (FP) PO SCH (21:21)
[2017-11-20] MEDS: INSULIN (LEVEMIR) 100 UNITS/ML UNITS SQ SCH (21:23)
[2017-11-21] MEDS: hydrOXYzine PAMOATE 50 MG CAPSULE (FP) PO PRN ×3 (01:40→20:58)
[2017-11-21] MEDS: CYCLOBENZAPRINE HCL 5 MG TABLET PO SCH ×3 (06:49→20:59)
[2017-11-21] MEDS: GABAPENTIN 300 MG CAPSULE (FP) PO SCH ×3 (06:49→20:59)
[2017-11-21] MEDS: INSULIN SLIDING SCALE (NOVOLOG) 1 VIAL SQ SCH ×4 (06:51→21:03)
[2017-11-21] MEDS ORDERED: INSULIN (NOVOLOG) ASPART 100 UNITS/ML 10ML VIAL ONE ×3 (07:30→20:57)
[2017-11-21] MEDS: PRENATAL VITAMINS W/ FOLIC ACID TABLET (FP) PO SCH (09:42)
[2017-11-21] MEDS: amLODIPine BESYLATE 10 MG TABLET (FP) PO SCH (09:42)
[2017-11-21] MEDS: ASPIRIN 81 MG CHEWABLE TABLETS PO SCH (09:42)
[2017-11-21] MEDS: metoPROLOL SUCCINATE 25 MG TAB.SR.24H (FP) PO SCH (09:42)
[2017-11-21] MEDS: ZIPRASIDONE 40 MG CAPSULE (FP) PO SCH ×2 (09:42→20:59)
[2017-11-21] MEDS: NICOTINE 21 MG/24 HOURS TOPICAL PATCH TD SCH (09:42)
[2017-11-21] MEDS: LOSARTAN 50MG/HCTZ 12.5MG 1 TAB (FP) PO SCH (10:45)
[2017-11-21] MEDS: MIRTAZAPINE 15 MG TABLET (FP) PO SCH (20:59)
[2017-11-21] MEDS: THIAMINE HCL 100 MG TABLET (FP) PO SCH (20:59)
[2017-11-21] MEDS: INSULIN (LEVEMIR) 100 UNITS/ML UNITS SQ SCH (21:02)
[2017-11-22] MEDS: hydrOXYzine PAMOATE 50 MG CAPSULE (FP) PO PRN ×3 (06:51→21:09)
[2017-11-22] MEDS: GABAPENTIN 300 MG CAPSULE (FP) PO SCH ×3 (06:51→21:07)
[2017-11-22] MEDS: CYCLOBENZAPRINE HCL 5 MG TABLET PO SCH ×3 (06:51→21:07)
[2017-11-22] MEDS: INSULIN SLIDING SCALE (NOVOLOG) 1 VIAL SQ SCH ×4 (06:52→21:09)
[2017-11-22] MEDS: ZIPRASIDONE 40 MG CAPSULE (FP) PO SCH ×2 (10:07→21:07)
[2017-11-22] MEDS: ASPIRIN 81 MG CHEWABLE TABLETS PO SCH (10:07)
[2017-11-22] MEDS: NICOTINE 21 MG/24 HOURS TOPICAL PATCH TD SCH (10:07)
[2017-11-22] MEDS: LOSARTAN 50MG/HCTZ 12.5MG 1 TAB (FP) PO SCH (10:08)
[2017-11-22] MEDS: PRENATAL VITAMINS W/ FOLIC ACID TABLET (FP) PO SCH (10:08)
[2017-11-22] MEDS: amLODIPine BESYLATE 10 MG TABLET (FP) PO SCH (10:08)
[2017-11-22] MEDS: metoPROLOL SUCCINATE 25 MG TAB.SR.24H (FP) PO SCH (10:08)
[2017-11-22] MEDS ORDERED: INSULIN (NOVOLOG) ASPART 100 UNITS/ML 10ML VIAL ONE ×2 (12:19→16:24)
--- NOTE | 2017-11-22 15:25 | PN ---
[facility] Progress Note Note: Patient presents with elevated blood sugar and reports being treated with standing Novolog. Blood sugars reviewed and show range as noted below.Objobj Patient also c/o bilateral foot neuropathic pain. Laboratory Tests 11/15/17 11/16/17 11/16/17 22:09 06:25 17:10 POC Glucometer 234 123 145 11/16/17 11/17/17 11/18/17 22:42 16:35 07:15 POC Glucometer 341 134 316 11/18/17 11/18/17 11/18/17 11:49 17:10 21:25 POC Glucometer 216 288 275 11/19/17 11/19/17 11/19/17 06:38 12:20 21:29 POC Glucometer 228 274 351 11/20/17 11/20/17 11/20/17 06:33 11:27 16:38 POC Glucometer 142 282 270 11/20/17 11/21/17 11/21/17 21:17 06:50 11:27 POC Glucometer 359 145 333 11/21/17 11/21/17 16:35 20:51 POC Glucometer 253 355 Vital Signs Temperature 97.8 F 11/22/17 07:05 Pulse Rate 91 H 11/22/17 10:00 Respiratory Rate 18 11/22/17 07:05 Blood Pressure 139/74 11/22/17 10:00 O2 Sat by Pulse Oximetry (%) obj: skin warm and dry. car: s1s2 resp: CTA BL Ext: no edema, +tenderness to plantar aspect of feet. Ambulation guarded due to pain. A/P: DM Diabetic neuropathies Will add Novolog 7 units BID AC continue Levemir and sliding scale cane for ambulation increase gabapentin 600mg BID continue to monitor clinically
[2017-11-22] MEDS: Insulin (LOG) Aspart 100 UNITS/ML VIAL SQ SCH (16:45)
[2017-11-22] MEDS: THIAMINE HCL 100 MG TABLET (FP) PO SCH (21:07)
[2017-11-22] MEDS: MIRTAZAPINE 15 MG TABLET (FP) PO SCH (21:07)
[2017-11-22] MEDS: INSULIN (LEVEMIR) 100 UNITS/ML UNITS SQ SCH (21:10)
[2017-11-23] MEDS: CYCLOBENZAPRINE HCL 5 MG TABLET PO SCH ×3 (06:40→21:17)
[2017-11-23] MEDS: Insulin (LOG) Aspart 100 UNITS/ML VIAL SQ SCH ×2 (07:00→16:49)
[2017-11-23] MEDS: INSULIN SLIDING SCALE (NOVOLOG) 1 VIAL SQ SCH ×4 (07:00→21:18)
[2017-11-23] MEDS ORDERED: INSULIN (NOVOLOG) ASPART 100 UNITS/ML 10ML VIAL ONE ×5 (07:01→22:12)
[2017-11-23] MEDS: LOSARTAN 50MG/HCTZ 12.5MG 1 TAB (FP) PO SCH (09:44)
[2017-11-23] MEDS: NICOTINE 21 MG/24 HOURS TOPICAL PATCH TD SCH (09:44)
[2017-11-23] MEDS: ASPIRIN 81 MG CHEWABLE TABLETS PO SCH (09:44)
[2017-11-23] MEDS: GABAPENTIN 300 MG CAPSULE (FP) PO SCH ×2 (09:44→21:17)
[2017-11-23] MEDS: ZIPRASIDONE 40 MG CAPSULE (FP) PO SCH ×2 (09:44→21:18)
[2017-11-23] MEDS: amLODIPine BESYLATE 10 MG TABLET (FP) PO SCH (09:44)
[2017-11-23] MEDS: PRENATAL VITAMINS W/ FOLIC ACID TABLET (FP) PO SCH (09:45)
[2017-11-23] MEDS: metoPROLOL SUCCINATE 25 MG TAB.SR.24H (FP) PO SCH (09:45)
[2017-11-23] MEDS: hydrOXYzine PAMOATE 50 MG CAPSULE (FP) PO PRN ×2 (09:46→21:17)
[2017-11-23] MEDS: THIAMINE HCL 100 MG TABLET (FP) PO SCH (21:17)
[2017-11-23] MEDS: MIRTAZAPINE 15 MG TABLET (FP) PO SCH (21:17)
[2017-11-23] MEDS: INSULIN (LEVEMIR) 100 UNITS/ML UNITS SQ SCH (21:18)
[2017-11-24] MEDS: CYCLOBENZAPRINE HCL 5 MG TABLET PO SCH ×3 (06:39→21:13)
[2017-11-24] MEDS: Insulin (LOG) Aspart 100 UNITS/ML VIAL SQ SCH ×2 (07:31→17:03)
[2017-11-24] MEDS ORDERED: INSULIN (NOVOLOG) ASPART 100 UNITS/ML 10ML VIAL ONE ×5 (07:31→22:00)
[2017-11-24] MEDS: INSULIN SLIDING SCALE (NOVOLOG) 1 VIAL SQ SCH ×4 (07:33→21:13)
[2017-11-24] MEDS: ASPIRIN 81 MG CHEWABLE TABLETS PO SCH (09:56)
[2017-11-24] MEDS: NICOTINE 21 MG/24 HOURS TOPICAL PATCH TD SCH (09:56)
[2017-11-24] MEDS: metoPROLOL SUCCINATE 25 MG TAB.SR.24H (FP) PO SCH (09:57)
[2017-11-24] MEDS: amLODIPine BESYLATE 10 MG TABLET (FP) PO SCH (09:57)
[2017-11-24] MEDS: GABAPENTIN 300 MG CAPSULE (FP) PO SCH ×2 (09:57→21:13)
[2017-11-24] MEDS: hydrOXYzine PAMOATE 50 MG CAPSULE (FP) PO PRN ×2 (09:57→21:15)
[2017-11-24] MEDS: ZIPRASIDONE 40 MG CAPSULE (FP) PO SCH ×2 (09:57→21:13)
[2017-11-24] MEDS: LOSARTAN 50MG/HCTZ 12.5MG 1 TAB (FP) PO SCH (09:58)
[2017-11-24] MEDS: PRENATAL VITAMINS W/ FOLIC ACID TABLET (FP) PO SCH (09:58)
[2017-11-24] MEDS: INSULIN (LEVEMIR) 100 UNITS/ML UNITS SQ SCH (21:13)
[2017-11-24] MEDS: THIAMINE HCL 100 MG TABLET (FP) PO SCH (21:13)
[2017-11-24] MEDS: MIRTAZAPINE 15 MG TABLET (FP) PO SCH (21:13)
[2017-11-25] MEDS: hydrOXYzine PAMOATE 50 MG CAPSULE (FP) PO PRN ×3 (01:31→21:22)
[2017-11-25] MEDS: CYCLOBENZAPRINE HCL 5 MG TABLET PO SCH ×3 (06:37→21:22)
[2017-11-25] MEDS: INSULIN SLIDING SCALE (NOVOLOG) 1 VIAL SQ SCH ×4 (06:39→21:24)
[2017-11-25] MEDS: Insulin (LOG) Aspart 100 UNITS/ML VIAL SQ SCH ×2 (06:39→17:02)
[2017-11-25] MEDS ORDERED: ALBUTEROL SO4 2.5/IPRATROPIUM 0.5 INH SOL 3 ML VIAL.NEB. NEB PRN (06:52)
[2017-11-25] MEDS: LOSARTAN 50MG/HCTZ 12.5MG 1 TAB (FP) PO SCH (10:05)
[2017-11-25] MEDS: NICOTINE 21 MG/24 HOURS TOPICAL PATCH TD SCH (10:05)
[2017-11-25] MEDS: ZIPRASIDONE 40 MG CAPSULE (FP) PO SCH ×2 (10:06→21:22)
[2017-11-25] MEDS: metoPROLOL SUCCINATE 25 MG TAB.SR.24H (FP) PO SCH (10:06)
[2017-11-25] MEDS: ASPIRIN 81 MG CHEWABLE TABLETS PO SCH (10:06)
[2017-11-25] MEDS: GABAPENTIN 300 MG CAPSULE (FP) PO SCH ×2 (10:06→21:22)
[2017-11-25] MEDS: amLODIPine BESYLATE 10 MG TABLET (FP) PO SCH (10:06)
[2017-11-25] MEDS: PRENATAL VITAMINS W/ FOLIC ACID TABLET (FP) PO SCH (10:06)
[2017-11-25] MEDS ORDERED: INSULIN (NOVOLOG) ASPART 100 UNITS/ML 10ML VIAL ONE ×3 (11:34→22:17)
[2017-11-25] MEDS: MIRTAZAPINE 15 MG TABLET (FP) PO SCH (21:22)
[2017-11-25] MEDS: THIAMINE HCL 100 MG TABLET (FP) PO SCH (21:22)
[2017-11-25] MEDS: INSULIN (LEVEMIR) 100 UNITS/ML UNITS SQ SCH (21:23)
[2017-11-26] MEDS: CYCLOBENZAPRINE HCL 5 MG TABLET PO SCH ×3 (06:08→21:09)
[2017-11-26] MEDS: Insulin (LOG) Aspart 100 UNITS/ML VIAL SQ SCH ×2 (06:12→17:17)
[2017-11-26] MEDS: INSULIN SLIDING SCALE (NOVOLOG) 1 VIAL SQ SCH ×4 (06:13→21:09)
[2017-11-26] MEDS: amLODIPine BESYLATE 10 MG TABLET (FP) PO SCH (09:59)
[2017-11-26] MEDS: GABAPENTIN 300 MG CAPSULE (FP) PO SCH ×2 (09:59→21:05)
[2017-11-26] MEDS: ZIPRASIDONE 40 MG CAPSULE (FP) PO SCH ×2 (09:59→21:06)
[2017-11-26] MEDS: ASPIRIN 81 MG CHEWABLE TABLETS PO SCH (09:59)
[2017-11-26] MEDS: PRENATAL VITAMINS W/ FOLIC ACID TABLET (FP) PO SCH (09:59)
[2017-11-26] MEDS: metoPROLOL SUCCINATE 25 MG TAB.SR.24H (FP) PO SCH (09:59)
[2017-11-26] MEDS: hydrOXYzine PAMOATE 50 MG CAPSULE (FP) PO PRN ×2 (10:02→21:06)
[2017-11-26] MEDS: NICOTINE 21 MG/24 HOURS TOPICAL PATCH TD SCH (10:02)
[2017-11-26] MEDS ORDERED: INSULIN (NOVOLOG) ASPART 100 UNITS/ML 10ML VIAL ONE (11:48)
[2017-11-26] MEDS: LOSARTAN 50MG/HCTZ 12.5MG 1 TAB (FP) PO SCH (14:40)
[2017-11-26] MEDS ORDERED: PT OWN MED DRAWER 7, Y5N ONE (14:40)
[2017-11-26] MEDS: MIRTAZAPINE 15 MG TABLET (FP) PO SCH (21:06)
[2017-11-26] MEDS: THIAMINE HCL 100 MG TABLET (FP) PO SCH (21:09)
[2017-11-26] MEDS: INSULIN (LEVEMIR) 100 UNITS/ML UNITS SQ SCH (21:09)
[2017-11-27] MEDS: CYCLOBENZAPRINE HCL 5 MG TABLET PO SCH ×3 (06:00→21:09)
[2017-11-27] MEDS: ACETAMINOPHEN 325 MG TABLET (FP) PO PRN (06:10)
[2017-11-27] MEDS ORDERED: INSULIN (NOVOLOG) ASPART 100 UNITS/ML 10ML VIAL ONE ×5 (07:12→22:09)
[2017-11-27] MEDS: Insulin (LOG) Aspart 100 UNITS/ML VIAL SQ SCH ×2 (07:28→17:00)
[2017-11-27] MEDS: INSULIN SLIDING SCALE (NOVOLOG) 1 VIAL SQ SCH ×4 (07:28→21:10)
[2017-11-27] MEDS: amLODIPine BESYLATE 10 MG TABLET (FP) PO SCH (10:12)
[2017-11-27] MEDS: ASPIRIN 81 MG CHEWABLE TABLETS PO SCH (10:12)
[2017-11-27] MEDS: NICOTINE 21 MG/24 HOURS TOPICAL PATCH TD SCH (10:12)
[2017-11-27] MEDS: ZIPRASIDONE 40 MG CAPSULE (FP) PO SCH ×2 (10:12→21:09)
[2017-11-27] MEDS: GABAPENTIN 300 MG CAPSULE (FP) PO SCH ×2 (10:12→21:09)
[2017-11-27] MEDS: PRENATAL VITAMINS W/ FOLIC ACID TABLET (FP) PO SCH (10:12)
[2017-11-27] MEDS: LOSARTAN 50MG/HCTZ 12.5MG 1 TAB (FP) PO SCH (10:13)
[2017-11-27] MEDS: hydrOXYzine PAMOATE 50 MG CAPSULE (FP) PO PRN ×2 (10:13→21:09)
[2017-11-27] MEDS: metoPROLOL SUCCINATE 25 MG TAB.SR.24H (FP) PO SCH (10:15)
--- NOTE | 2017-11-27 14:31 | PN ---
[facility] Progress Note Note: PATIENT C/O ELEVATED BLOOD SUGARS AND PAIN TO FEET. Laboratory Tests 11/15/17 11/16/17 11/16/17 22:09 06:25 17:10 POC Glucometer 234 123 145 11/16/17 11/17/17 11/18/17 22:42 16:35 07:15 POC Glucometer 341 134 316 11/18/17 11/18/17 11/18/17 11:49 17:10 21:25 POC Glucometer 216 288 275 11/19/17 11/19/17 11/19/17 06:38 12:20 21:29 POC Glucometer 228 274 351 11/20/17 11/20/17 11/20/17 06:33 11:27 16:38 POC Glucometer 142 282 270 11/20/17 11/21/17 11/21/17 21:17 06:50 11:27 POC Glucometer 359 145 333 11/21/17 11/21/17 11/22/17 16:35 20:51 06:50 POC Glucometer 253 355 149 11/22/17 11/22/17 11/22/17 12:17 16:42 21:04 POC Glucometer 270 318 313 11/23/17 11/23/17 11/23/17 06:37 12:09 16:47 POC Glucometer 216 295 305 11/23/17 11/24/17 11/24/17 21:14 06:25 11:57 POC Glucometer 391 253 321 11/24/17 11/24/17 11/25/17 17:01 21:10 06:36 POC Glucometer 250 341 246 11/25/17 11/25/17 11/25/17 11:32 17:00 21:19 POC Glucometer 326 285 375 11/26/17 11/26/17 11/26/17 06:10 11:46 17:15 POC Glucometer 279 347 292 11/26/17 21:04 POC Glucometer 348 Vital Signs Temperature 98.1 F 11/27/17 06:52 Pulse Rate 100 H 11/27/17 10:00 Respiratory Rate 18 11/27/17 10:00 Blood Pressure 112/80 11/27/17 10:00 O2 Sat by Pulse Oximetry (%) OBJ: GENERAL: ALERT AND ORIENTED X 3. IN NO ACUTE DISTRESS. SKIN: WARM AND DRY. INTACT. EXT: TRACE EDEMA. FULL ROM. A/P: BILATERAL FOOT PAIN RELATED TO NEUROPATHY DM: ELEVATED CONTINUE CURRENT GABAPENTIN AND CYCLOBENZAPRINE ORDERED PT ENCOURAGED TO FOLLOW UP WITH PCP ONCE HE IS DISCHARGED FOR FOLLOW UP AND ONGOING TREATMENT WILL INCREASE LEVEMIR TO 40UNITS SQ HS CONTINUE TO MONITOR BLOOD SUGAR AND DIET MODIFICATIONS
[2017-11-27] MEDS: THIAMINE HCL 100 MG TABLET (FP) PO SCH (21:08)
[2017-11-27] MEDS: MIRTAZAPINE 15 MG TABLET (FP) PO SCH (21:09)
[2017-11-27] MEDS: INSULIN (LEVEMIR) 100 UNITS/ML UNITS SQ SCH (21:10)
[2017-11-28] MEDS: hydrOXYzine PAMOATE 50 MG CAPSULE (FP) PO PRN ×4 (03:52→21:14)
[2017-11-28] MEDS: CYCLOBENZAPRINE HCL 5 MG TABLET PO SCH ×3 (06:21→21:14)
[2017-11-28] MEDS ORDERED: INSULIN (NOVOLOG) ASPART 100 UNITS/ML 10ML VIAL ONE ×5 (07:09→22:28)
[2017-11-28] MEDS: INSULIN SLIDING SCALE (NOVOLOG) 1 VIAL SQ SCH ×4 (07:10→21:14)
[2017-11-28] MEDS: Insulin (LOG) Aspart 100 UNITS/ML VIAL SQ SCH ×2 (07:10→16:52)
[2017-11-28] MEDS: PRENATAL VITAMINS W/ FOLIC ACID TABLET (FP) PO SCH (09:51)
[2017-11-28] MEDS: amLODIPine BESYLATE 10 MG TABLET (FP) PO SCH (09:51)
[2017-11-28] MEDS: metoPROLOL SUCCINATE 25 MG TAB.SR.24H (FP) PO SCH (09:51)
[2017-11-28] MEDS: GABAPENTIN 300 MG CAPSULE (FP) PO SCH ×2 (09:51→21:14)
[2017-11-28] MEDS: LOSARTAN 50MG/HCTZ 12.5MG 1 TAB (FP) PO SCH (09:51)
[2017-11-28] MEDS: ASPIRIN 81 MG CHEWABLE TABLETS PO SCH (09:51)
[2017-11-28] MEDS: NICOTINE 21 MG/24 HOURS TOPICAL PATCH TD SCH (09:55)
[2017-11-28] MEDS: ZIPRASIDONE 40 MG CAPSULE (FP) PO SCH ×2 (10:31→21:14)
[2017-11-28] MEDS: MIRTAZAPINE 15 MG TABLET (FP) PO SCH (21:14)
[2017-11-28] MEDS: THIAMINE HCL 100 MG TABLET (FP) PO SCH (21:14)
[2017-11-28] MEDS: INSULIN (LEVEMIR) 100 UNITS/ML UNITS SQ SCH (21:15)
[2017-11-29] MEDS: CYCLOBENZAPRINE HCL 5 MG TABLET PO SCH ×3 (06:44→23:50)
[2017-11-29] MEDS: INSULIN SLIDING SCALE (NOVOLOG) 1 VIAL SQ SCH ×4 (06:44→23:50)
[2017-11-29] MEDS: Insulin (LOG) Aspart 100 UNITS/ML VIAL SQ SCH ×2 (07:33→17:44)
[2017-11-29] MEDS ORDERED: INSULIN (NOVOLOG) ASPART 100 UNITS/ML 10ML VIAL ONE ×4 (07:34→20:53)
[2017-11-29] MEDS: amLODIPine BESYLATE 10 MG TABLET (FP) PO SCH (09:50)
[2017-11-29] MEDS: LOSARTAN 50MG/HCTZ 12.5MG 1 TAB (FP) PO SCH (09:50)
[2017-11-29] MEDS: GABAPENTIN 300 MG CAPSULE (FP) PO SCH ×2 (09:50→23:50)
[2017-11-29] MEDS: NICOTINE 21 MG/24 HOURS TOPICAL PATCH TD SCH (09:50)
[2017-11-29] MEDS: ZIPRASIDONE 40 MG CAPSULE (FP) PO SCH ×2 (09:50→23:50)
[2017-11-29] MEDS: PRENATAL VITAMINS W/ FOLIC ACID TABLET (FP) PO SCH (09:50)
[2017-11-29] MEDS: ASPIRIN 81 MG CHEWABLE TABLETS PO SCH (09:50)
[2017-11-29] MEDS: hydrOXYzine PAMOATE 50 MG CAPSULE (FP) PO PRN (09:53)
[2017-11-29] MEDS: metoPROLOL SUCCINATE 25 MG TAB.SR.24H (FP) PO SCH (10:41)
[2017-11-29] MEDS: INSULIN (LEVEMIR) 100 UNITS/ML UNITS SQ SCH (23:50)
[2017-11-29] MEDS: MIRTAZAPINE 15 MG TABLET (FP) PO SCH (23:58)
[2017-11-29] MEDS: THIAMINE HCL 100 MG TABLET (FP) PO SCH (23:58)
[2017-11-30] MEDS: hydrOXYzine PAMOATE 50 MG CAPSULE (FP) PO PRN (04:04)
[2017-11-30] MEDS: INSULIN SLIDING SCALE (NOVOLOG) 1 VIAL SQ SCH ×2 (06:23→12:08)
[2017-11-30] MEDS: CYCLOBENZAPRINE HCL 5 MG TABLET PO SCH ×2 (06:23→14:08)
[2017-11-30] MEDS: Insulin (LOG) Aspart 100 UNITS/ML VIAL SQ SCH (06:23)
[2017-11-30 07:02] VITALS: TEMP 98.1
[2017-11-30] MEDS ORDERED: ALBUTEROL SO4 2.5/IPRATROPIUM 0.5 INH SOL 3 ML VIAL.NEB. NEB PRN (07:33)
[2017-11-30] MEDS: PRENATAL VITAMINS W/ FOLIC ACID TABLET (FP) PO SCH (10:14)
[2017-11-30] MEDS: ASPIRIN 81 MG CHEWABLE TABLETS PO SCH (10:14)
[2017-11-30] MEDS: ZIPRASIDONE 40 MG CAPSULE (FP) PO SCH (10:14)
[2017-11-30] MEDS: GABAPENTIN 300 MG CAPSULE (FP) PO SCH (10:14)
[2017-11-30] MEDS: LOSARTAN 50MG/HCTZ 12.5MG 1 TAB (FP) PO SCH (10:14)
[2017-11-30] MEDS: NICOTINE 21 MG/24 HOURS TOPICAL PATCH TD SCH (10:15)
[2017-11-30] MEDS: amLODIPine BESYLATE 10 MG TABLET (FP) PO SCH (10:15)
[2017-11-30] MEDS: metoPROLOL SUCCINATE 25 MG TAB.SR.24H (FP) PO SCH (10:15)
--- NOTE | 2017-11-30 10:36 | PN ---
[facility] Progress Note Note: Patient is 52 yo male with hx of CHF and DM II c/o of sharp intermittent, non- radiating, substernal chest pain 12/08 which began today at 4AM. Denies SOB, paresthesia or vertigo. Vital Signs Temperature 98.1 F 11/30/17 07:01 Pulse Rate 98 H 11/30/17 11:34 Respiratory Rate 18 11/30/17 11:34 Blood Pressure 150/80 11/30/17 11:34 O2 Sat by Pulse Oximetry (%) 99 11/30/17 11:34 Laboratory Last Values POC Glucometer 262 UNITS (80-120) 11/30/17 06:19 A/P AO x3 in no apparent distress lungs clear through out +s1, s2, no JVD no adventitious breath sounds no edema, erythema Plan: EKG STAT : Sinus Arrhythmia Patient send to [facility] via [facility] for further evaluation. Endorse to Dr. Childers.
[2017-11-30 11:35] VITALS: BP 150/80; PULSE 98
== END 2017-11-30 11:45 | disposition short-term general hospital (02) | DRG 772 ==
LOC: YASAS 20:18 → Y3W 20:20
PROVIDERS: ADMIT Psychiatry & Neurology Psychiatry; ATTEND Psychiatry & Neurology Psychiatry
PROC: HZ42ZZZ Group Counseling for Substance Abuse Treatment, Cognitive-Behavioral (ICD-10-PCS; principal; 2017-11-15)
DX: F10.20 Alcohol dependence, uncomplicated (principal); F14.20 Cocaine dependence, uncomplicated; F17.210 Nicotine dependence, cigarettes, uncomplicated; F25.9 Schizoaffective disorder, unspecified; F43.10 Post-traumatic stress disorder, unspecified; F19.24 Other psychoactive substance dependence with psychoactive substance-induced mood disorder; F19.282 Other psychoactive substance dependence with psychoactive substance-induced sleep disorder; I25.10 Atherosclerotic heart disease of native coronary artery without angina pectoris; I50.9 Heart failure, unspecified; I10 Essential (primary) hypertension; I25.2 Old myocardial infarction; M79.2 Neuralgia and neuritis, unspecified; E11.9 Type 2 diabetes mellitus without complications; Z79.84 Long term (current) use of oral hypoglycemic drugs; G40.509 Epileptic seizures related to external causes, not intractable, without status epilepticus; Z88.8 Allergy status to other drugs, medicaments and biological substances
CPT/HCPCS: 82962

== ENCOUNTER 2017-11-30 11:56 | Inpatient (IN) | payer OTHER ==
--- NOTE | 2017-11-30 12:10 | PDOC ---
History of Present Illness - General History Source: Patient Exam Limitations: No Limitations - History of Present Illness Initial Comments: 11/30/17 12:18 The patient is a 52 year old male with a significant PMH of alcohol and opioid abuse, s/p [place] (in 2009), anemia, asthma, bipolar, hypothyroidism, CHF, DM, HLD, and HTN who presents to the emergency department with chest pain since this morning. The patient states his chest pain is intermittent, sharp, nonradiating , and localized on the left side of his chest. The patient endorses diaphoresis but denies fever, chills, nausea, vomiting, or shortness of breath. The patient reports taking an aspirin at home and received 3 aspirins from EMS en route to the ER. The patient denies any alleviating or exacerbating factors. The patient denies leg swelling, shortness of breath, headache and dizziness. Denies fever, chills, nausea, vomit, diarrhea and constipation. Denies dysuria, frequency, urgency and hematuria. Allergies: Penicillins, quetiapine Past surgical history: None reported. Social history: Alcohol (Started drinking alcohol at age 15, consumes 4-5 pints of vodka or rum daily. Last drank on 11/11/17), Cocaine (Started using cocaine at age 19, consumes $80 worth daily. Last used on 11/09/17) Hx Substance Use Treatment: Yes (currently in [facility] detox) PCP: Dr. Soares <Blanca Griffin - Last Filed: 11/30/17 12:27> <Yue Clifton - Last Filed: 11/30/17 15:46> - General Chief Complaint: Chest Pain Stated Complaint: CHEST PAIN Time Seen by Provider: 11/30/17 12:07 Past History <Blanca Griffin - Last Filed: 11/30/17 12:27> - Past Medical History Anemia: Yes (FEOSOL) Asthma: Yes Cancer: No Cardiac Disorders: Yes (2010) CVA: No COPD: No CHF: Yes Dementia: No Diabetes: Yes (IDDM) GI Disorders: Yes (acid reflux) Disorders: No HTN: Yes Hypercholesterolemia: No Kidney Stones: No Liver Disease: No Seizures: Yes (alcohol related-last episode was in 2015) Thyroid Disease: No - Surgical History Abdominal Surgery: No Appendectomy: Yes (08/2013) Cardiac Surgery: No Cholecystectomy: No Lung Surgery: No Neurologic Surgery: No Orthopedic Surgery: No - Reproductive History Testicular Surgery: No - Immunization History Immunization Up to Date: Yes - Suicide/Smoking/Psychosocial Hx Smoking History: Current every day smoker Have you smoked in the past 12 months: Yes Number of Cigarettes Smoked Daily: 20 Cigars Per Day: 0 'Breaking Loose' booklet given: 11/11/17 Hx Alcohol Use: Yes Drug/Substance Use Hx: Yes Substance Use Type: Alcohol (Started drinking alcohol at age 15, consumes 4-5 pints of vodka or rum daily. Last drank on 11/11/17), Cocaine (Started using cocaine at age 19, consumes $80 worth daily. Last used on 11/09/17) Hx Substance Use Treatment: Yes (8 previous inpt detox & 5 inpt rehab admissions @ [facility]) <Yue Clifton - Last Filed: 11/30/17 15:46> - Past Medical History Allergies/Adverse Reactions: Allergies Allergy/AdvReac Type Severity Reaction Status Date / Time Penicillins Allergy Severe Hives Verified 11/30/17 12:28 quetiapine fumarate AdvReac Severe twitching Verified 11/30/17 12:28 [From Seroquel] Home Medications: Ambulatory Orders Losartan/Hydrochlorothiazide [Hyzaar 50-12.5 Tablet] 1 each PO DAILY 07/12/16 Metoprolol Succinate [Toprol XL -] 25 mg PO DAILY tab.sr.24h 07/16/16 Albuterol 2.5/Ipratropium 0.5 [Duoneb -] 1 amp NEB Q6H PRN #0 amp 05/03/17 Albuterol Sulfate Inhaler - [Ventolin HFA Inhaler -] 2 puff IH Q4H PRN #1 inhaler 05/03/17 Amlodipine Besylate 10 mg PO DAILY #30 tab 05/03/17 Aspirin [ASA -] 81 mg PO DAILY #30 tab 05/03/17 Insulin (Novolog) [Novolog] 0 units SQ TID PRN 11/11/17 Gabapentin [Neurontin -] 600 mg PO BID 11/30/17 Insulin (Levemir) [Levemir Vial] 40 unit SQ HS 11/30/17 Insulin Aspart [Novolog] 7 unit SQ BID 11/30/17 Melatonin 5 mg PO PRN PRN 11/30/17 Mirtazapine [Remeron -] 15 mg PO HS 11/30/17 Thiamine HCl [Vitamin B1] 100 mg PO HS 11/30/17 Ziprasidone HCl [Geodon] 40 mg PO BID 11/30/17 Review of Systems - Review of Systems Able to Perform ROS?: Yes Comments:: 11/30/17 12:18 GENERAL/CONSTITUTIONAL: No fever or chills. No weakness. HEAD, EYES, EARS, NOSE AND THROAT: No change in vision. No ear pain or discharge. No sore throat. CARDIOVASCULAR: (+) Chest pain. No shortness of breath. RESPIRATORY: No cough, wheezing, or hemoptysis. GASTROINTESTINAL: No nausea, vomiting, diarrhea or constipation. GENITOURINARY: No dysuria, frequency, or change in urination. MUSCULOSKELETAL: No joint or muscle swelling or pain. No neck or back pain. SKIN: No rash NEUROLOGIC: No headache, vertigo, loss of consciousness, or change in strength/ sensation. ENDOCRINE: No increased thirst. No abnormal weight change. HEMATOLOGIC/LYMPHATIC: No anemia, easy bleeding, or history of blood clots. ALLERGIC/IMMUNOLOGIC: No hives or skin allergy. <Blanca Griffin - Last Filed: 11/30/17 12:27> *Physical Exam - Physical Exam Comments: 11/30/17 12:17 GENERAL: (+) Appears anxious. Awake, alert, and fully oriented. HEAD: No signs of trauma EYES: PERRLA, EOMI, sclera anicteric, conjunctiva clear ENT: Auricles normal inspection, hearing grossly normal, nares patent, oropharynx clear without exudates. Moist mucosa NECK: Normal ROM, supple, no lymphadenopathy, JVD, or masses LUNGS: Breath sounds equal, clear to auscultation bilaterally. No wheezes, and no crackles HEART: Regular rate and rhythm, normal S1 and S2, no murmurs, rubs or gallops ABDOMEN: Soft, nontender, normoactive bowel sounds. No guarding, no rebound. No masses EXTREMITIES: Normal range of motion, no edema. No clubbing or cyanosis. No cords, erythema, or tenderness NEUROLOGICAL: Cranial nerves II through XII grossly intact. Normal speech, normal gait SKIN: Warm, Dry, normal turgor, no rashes or lesions noted. <Blanca Griffin - Last Filed: 11/30/17 12:27> Heart Score/ECG Review - History History: Moderately suspicious - Electrocardiogram EKG: Normal - Age Age: 45-65 - Risk Factors Risk Factors Heart Score: Yes Hx Hypercholesterolemia, Yes Hx Hypertension, Yes Positive family hx of cardiac disease Based on the list above the patient has:: >/=3 risk factors or Hx atherosclerotic disease - ECG Impressions Comment:: EKG read 12:16- NSR [address]/T changes <Yue Clifton - Last Filed: 11/30/17 15:46> ED Treatment Course - LABORATORY CBC & Chemistry Diagram: 11/30/17 12:29 11/30/17 12:29 <Yue Clifton - Last Filed: 11/30/17 15:46> Medical Decision Making - Medical Decision Making 11/30/17 14:[address] Shoemaker, who accepted for admission. Pt has history of more than one cardiac cath, they were reoprtedly negative (according to patient and review of prior [facility] visits). 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 Last cath was in 2016, no cardiac testing since then. Of note, patient was given morphine BEFORE the urine tox was sent. He is currently in detox for alcohol, hence the benzodiazepines. However, he is negative for cocaine. <Yue Clifton - Last Filed: 11/30/17 15:46> *DC/Admit/Observation/Transfer - Attestations Scribe Attestion: 11/30/17 12:17 Documentation prepared by Blanca Griffin, acting as medical instrument cable fabricator for Yue Clifton MD. <Blanca Griffin - Last Filed: 11/30/17 12:27> - Discharge Dispostion Decision to Admit order: Yes <Yue Clifton - Last Filed: 11/30/17 15:46> Diagnosis at time of Disposition: Chest pain Qualifiers: Chest pain type: unspecified Qualified Code(s): R07.9 - Chest pain, unspecified - Discharge Dispostion Condition at time of disposition: Stable
[2017-11-30] MEDS ORDERED: morphine SULFATE 4 MG/ML VIAL ONE ×2 (12:17→13:07)
[2017-11-30] MEDS ORDERED: morphine CARPU-JECT 4 MG/1 ML DISP.SYRIN IVPUSH ONE ×2 (12:17→13:04)
[2017-11-30 12:49] LABS: BASO % 1.2 % (0-2.0); HEMATOCRIT 40.5 % (35.4-49); HEMOGLOBIN 13.1 GM/dL (11.7-16.9); LYMPH % 28.3 % (8-40); MCH 22.6 pg (25.7-33.7); MCHC 32.2 g/dl (32.0-35.9); MEAN CELL VOLUME 70.2 fl (80-96); MEAN PLT VOLUME 8.1 fl (7.5-11.1); MONO % 11.1 % (3.8-10.2); NEUT % 57.4 % (42.8-82.8); PLATELET COUNT 235 K/MM3 (134-434); RBC 5.77 M/mm3 (4.00-5.60); RDW 15.8 % (11.9-15.9); WHITE BLOOD COUNT 6.4 K/mm3 (4.0-10.0)
[2017-11-30 13:22] LABS: ALBUMIN 3.8 g/dl (3.4-5.0); ANION GAP 7 (8-16); BLOOD UREA NITROGEN 14 mg/dL (7-18); CALCIUM 9.2 mg/dL (8.5-10.1); CHLORIDE 98 mmol/L (98-107); CO2 29 mmol/L (21-32); CREATININE 0.9 mg/dL (0.7-1.3); POTASSIUM 4.4 mmol/L (3.5-5.1); SGOT/AST 23 U/L (15-37); SGPT/ALT 60 U/L (12-78); SODIUM 134 mmol/L (136-145)
[2017-11-30 13:26] LABS: ALK PHOS 67 U/L (45-117); BILIRUBIN,TOTAL 0.3 mg/dL (0.2-1.0); TOT PROT 7.4 g/dl (6.4-8.2)
[2017-11-30 13:33] LABS: GLUCOSE,RANDOM 326 mg/dL (74-106)
[2017-11-30 13:52] LABS: COCAINE, UR NEGATIVE ng/ml (CUTOFF=300); METHADONE, UR NEGATIVE ng/ml (CUTOFF=300); PHENCYCLIDINE,URINE NEGATIVE ng/ml (CUTOFF=25); URINE AMPHETAMINES NEGATIVE ng/ml (CUTOFF=500); URINE BARBITURATES NEGATIVE ng/ml (CUTOFF=200); URINE BENZODIAZEPINES POSITIVE ng/ml (CUTOFF=200)
[2017-11-30 13:53] LABS: OPIATES, URI POSITIVE ng/ml (CUTOFF=300)
[2017-11-30] MEDS ORDERED: INSULIN REGULAR HUMAN 100 UNITS/ML *VIAL SQ ONE (14:41)
[2017-11-30] MEDS ORDERED: INSULIN REGULAR HUMAN 100 UNITS/ML *VIAL ONE (15:01)
[2017-11-30] MEDS ORDERED: MELATONIN 5 MG TABLETS PO PRN (16:41)
[2017-11-30] MEDS ORDERED: ALBUTEROL SO4 2.5/IPRATROPIUM 0.5 INH SOL 3 ML VIAL.NEB. NEB PRN (16:41)
[2017-11-30] MEDS ORDERED: ACETAMINOPHEN 325 MG TABLET (FP) PO PRN (18:44)
[2017-11-30] MEDS ORDERED: KETOROLAC TROMETHAMINE 10 MG TABLET PO PRN (19:10)
[2017-11-30] MEDS ORDERED: PT OWN MED DRAWER 7, Y5N ONE (20:12)
[2017-11-30] MEDS ORDERED: morphine SULFATE 4 MG/ML VIAL IVPUSH ONE (21:04)
[2017-11-30] MEDS: GABAPENTIN 300 MG CAPSULE (FP) PO SCH (21:20)
[2017-11-30] MEDS: HEPARIN NA (PORCINE) 5,000 UNITS/ML 1ML VIAL SQ SCH (21:20)
[2017-11-30] MEDS: MIRTAZAPINE 15 MG TABLET (FP) PO SCH (21:20)
[2017-11-30] MEDS: THIAMINE HCL 100 MG TABLET (FP) PO SCH (21:20)
[2017-11-30] MEDS: INSULIN SLIDING SCALE (NOVOLOG) 1 VIAL SQ SCH (21:28)
[2017-11-30] MEDS: INSULIN (LEVEMIR) 100 UNITS/ML UNITS SQ SCH (21:29)
[2017-11-30] MEDS: MELATONIN 5 MG TABLETS PO PRN (23:30)
[2017-11-30] MEDS: ZIPRASIDONE 40 MG CAPSULE (FP) PO SCH (23:30)
[2017-12-01] MEDS ORDERED: KETOROLAC TROMETHAMINE 10 MG TABLET PO SCH
[2017-12-01] MEDS: INSULIN SLIDING SCALE (NOVOLOG) 1 VIAL SQ SCH ×4 (06:44→22:42)
[2017-12-01 06:50] LABS: EOS % 2.7 % (0-4.5); HEMATOCRIT 41.5 % (35.4-49); HEMOGLOBIN 13.3 GM/dL (11.7-16.9); LYMPH % 34.2 % (8-40); MCH 22.5 pg (25.7-33.7); MEAN CELL VOLUME 70.2 fl (80-96); MEAN PLT VOLUME 8.3 fl (7.5-11.1); NEUT % 50.1 % (42.8-82.8); PLATELET COUNT 214 K/MM3 (134-434); RBC 5.92 M/mm3 (4.00-5.60); RDW 15.9 % (11.9-15.9); WHITE BLOOD COUNT 5.6 K/mm3 (4.0-10.0)
[2017-12-01 07:33] LABS: ALBUMIN 3.7 g/dl (3.4-5.0); ANION GAP 6 (8-16); BLOOD UREA NITROGEN 17 mg/dL (7-18); CALCIUM 9.1 mg/dL (8.5-10.1); CHLORIDE 98 mmol/L (98-107); CO2 29 mmol/L (21-32); GLUCOSE,RANDOM 272 mg/dL (74-106); MAGNESIUM 1.9 mg/dL (1.8-2.4); POTASSIUM 4.4 mmol/L (3.5-5.1); SODIUM 133 mmol/L (136-145)
[2017-12-01 07:37] LABS: ALK PHOS 65 U/L (45-117); BILIRUBIN,TOTAL 0.3 mg/dL (0.2-1.0); CHOLESTEROL 176 mg/dL (50-200); CREATININE 0.8 mg/dL (0.7-1.3); HDL CHOLESTEROL 43 mg/dL (40-60); SGOT/AST 19 U/L (15-37); SGPT/ALT 52 U/L (12-78); TOT PROT 7.3 g/dl (6.4-8.2); TRIGLYCERIDES 168 mg/dL (35-160)
[2017-12-01] MEDS ORDERED: PT OWN MED DRAWER 7, Y5N ONE ×3 (08:38→22:30)
[2017-12-01] MEDS: metoPROLOL SUCCINATE 25 MG TAB.SR.24H (FP) PO SCH (10:12)
[2017-12-01] MEDS: GABAPENTIN 300 MG CAPSULE (FP) PO SCH ×2 (10:12→22:43)
[2017-12-01] MEDS: HEPARIN NA (PORCINE) 5,000 UNITS/ML 1ML VIAL SQ SCH ×2 (10:12→22:43)
[2017-12-01] MEDS: ASPIRIN 81 MG CHEWABLE TABLETS PO SCH (10:13)
[2017-12-01] MEDS: ZIPRASIDONE 40 MG CAPSULE (FP) PO SCH ×2 (10:13→22:43)
[2017-12-01] MEDS: amLODIPine BESYLATE 10 MG TABLET (FP) PO SCH (10:13)
--- NOTE | 2017-12-01 10:42 | HP ---
Admitting History and Physical - Admission History of Present Illness: 52 year old male with a significant PMH of alcohol and opioid abuse, s/p [place] (in 2009), anemia, asthma, bipolar, hypothyroidism, CHF, DM, HLD, and HTN who presents to the emergency department with chest pain - Past Medical History CLIENT SERVICES DIRECTOR: Yes: Peripheral Neuropathy Cardiovascular: Yes: CAD, HTN, Hyperlipdemia, MD Psych: Yes: Addictions (ETOH, cocaine, tobacco) Endocrine: Yes: Diabetes Mellitus - Past Surgical History Past Surgical History: Yes: Appendectomy - Smoking History Smoking history: Current every day smoker Have you smoked in the past 12 months: Yes Aproximately how many cigarettes per day: 20 - Alcohol/Substance Use Hx Alcohol Use: Yes History of Substance Use: reports: Cocaine, Heroin, Marijuana, Tranquilizers - Social History ADL: Independent Occupation: on SSI History of Recent Travel: No Home Medications - Allergies Allergies/Adverse Reactions: Allergies Allergy/AdvReac Type Severity Reaction Status Date / Time Penicillins Allergy Severe Hives Verified 11/30/17 12:28 quetiapine fumarate AdvReac Severe twitching Verified 11/30/17 12:28 [From Seroquel] - Home Medications Home Medications: Ambulatory Orders Losartan/Hydrochlorothiazide [Hyzaar 50-12.5 Tablet] 1 each PO DAILY 07/12/16 Metoprolol Succinate [Toprol XL -] 25 mg PO DAILY tab.sr.24h 07/16/16 Albuterol 2.5/Ipratropium 0.5 [Duoneb -] 1 amp NEB Q6H PRN #0 amp 05/03/17 Albuterol Sulfate Inhaler - [Ventolin HFA Inhaler -] 2 puff IH Q4H PRN #1 inhaler 05/03/17 Amlodipine Besylate 10 mg PO DAILY #30 tab 05/03/17 Aspirin [ASA -] 81 mg PO DAILY #30 tab 05/03/17 Insulin (Novolog) [Novolog] 0 units SQ TID PRN 11/11/17 Gabapentin [Neurontin -] 600 mg PO BID 11/30/17 Insulin (Levemir) [Levemir Vial] 40 unit SQ HS 11/30/17 Insulin Aspart [Novolog] 7 unit SQ BID 11/30/17 Melatonin 5 mg PO PRN PRN 11/30/17 Mirtazapine [Remeron -] 15 mg PO HS 11/30/17 Thiamine HCl [Vitamin B1] 100 mg PO HS 11/30/17 Ziprasidone HCl [Geodon] 40 mg PO BID 11/30/17 Family Disease History - Family Disease History Family Disease History: Diabetes: Mother (HTN, ho mental illness), Brother (1 brother healthy and living), Sister (2 sisters healthy and living), Son, Heart Disease: Mother, Other: Father (Father unknown), Mother Review of Systems - Review of Systems Cardiovascular: reports: Chest Pain. denies: Shortness of Breath Respiratory: denies: SOB on Exertion Gastrointestinal: denies: Abdominal Pain Genitourinary: reports: No Symptoms Physical Examination Vital Signs: Vital Signs Temperature 98.7 F 12/01/17 06:35 Pulse Rate 80 12/01/17 06:35 Respiratory Rate 18 12/01/17 06:35 Blood Pressure 136/79 12/01/17 06:35 O2 Sat by Pulse Oximetry (%) 93 L 11/30/17 21:00 Cardiovascular: Yes: Regular Rate and Rhythm Respiratory: Yes: Regular, CTA Bilaterally Gastrointestinal: Yes: Normal Bowel Sounds, Soft. No: Tenderness Edema: No Labs: CBC, BMP 12/01/17 05:30 12/01/17 05:30 Problem List - Problems (1) Chest pain Assessment/Plan: -Atypical -follow ce -cardio Code(s): R07.9 - CHEST PAIN, UNSPECIFIED Qualifiers: Chest pain type: unspecified Qualified Code(s): R07.9 - Chest pain, unspecified (2) Alcohol dependence Assessment/Plan: -detox consult Code(s): F10.20 - ALCOHOL DEPENDENCE, UNCOMPLICATED (3) CAD (coronary artery disease) Assessment/Plan: -resume meds -cardio Code(s): I25.10 - ATHSCL HEART DISEASE OF [place] CORONARY ARTERY W/O ANG PCTRS (4) DM Diabetes mellitus type 2 Assessment/Plan: -insulin -ss -endo Code(s): E11.9 - TYPE 2 DIABETES MELLITUS WITHOUT COMPLICATIONS
--- NOTE | 2017-12-01 12:42 | CON.CARD ---
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 He reports a cardiac catheterization at [facility] with normal coronaries 2 years ago. 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: Peripheral Neuropathy Cardio/Vascular: Yes: CAD, HTN, Hyperlipdemia, [place] Psych: Yes: Addictions (ETOH, cocaine, tobacco) Endocrine: Yes: Diabetes Mellitus - Past Surgical History Past Surgical History: Yes: Appendectomy - Alcohol/Substance Use Hx Alcohol Use: Yes History of Substance Use: reports: Cocaine, Heroin, Marijuana, Tranquilizers - Smoking History Smoking history: Current every day smoker Have you smoked in the past 12 months: Yes Aproximately how many cigarettes per day: 20 - Social History ADL: Independent Occupation: on SSI History of Recent Travel: No Home Medications - Allergies Allergies/Adverse Reactions: Allergies Allergy/AdvReac Type Severity Reaction Status Date / Time Penicillins Allergy Severe Hives Verified 11/30/17 12:28 quetiapine fumarate AdvReac Severe twitching Verified 11/30/17 12:28 [From Seroquel] - Home Medications Home Medications: Ambulatory Orders Losartan/Hydrochlorothiazide [Hyzaar 50-12.5 Tablet] 1 each PO DAILY 07/12/16 Metoprolol Succinate [Toprol XL -] 25 mg PO DAILY tab.sr.24h 07/16/16 Albuterol 2.5/Ipratropium 0.5 [Duoneb -] 1 amp NEB Q6H PRN #0 amp 05/03/17 Albuterol Sulfate Inhaler - [Ventolin HFA Inhaler -] 2 puff IH Q4H PRN #1 inhaler 05/03/17 Amlodipine Besylate 10 mg PO DAILY #30 tab 05/03/17 Aspirin [ASA -] 81 mg PO DAILY #30 tab 05/03/17 Insulin (Novolog) [Novolog] 0 units SQ TID PRN 11/11/17 Gabapentin [Neurontin -] 600 mg PO BID 11/30/17 Insulin (Levemir) [Levemir Vial] 40 unit SQ HS 11/30/17 Insulin Aspart [Novolog] 7 unit SQ BID 11/30/17 Melatonin 5 mg PO PRN PRN 11/30/17 Mirtazapine [Remeron -] 15 mg PO HS 11/30/17 Thiamine HCl [Vitamin B1] 100 mg PO HS 11/30/17 Ziprasidone HCl [Geodon] 40 mg PO BID 11/30/17 Family Disease History - Family Disease History Family Disease History: Diabetes: Mother (HTN, ho mental illness), Brother (1 brother healthy and living), Sister (2 sisters healthy and living), Son, Heart Disease: Mother, Other: Father (Father unknown), Mother Review of Systems - Review of Systems Constitutional: reports: No Symptoms Eyes: reports: No Symptoms HENT: reports: No Symptoms Neck: reports: No Symptoms Cardiovascular: reports: Chest Pain Respiratory: reports: No Symptoms Gastrointestinal: reports: No Symptoms Genitourinary: reports: No Symptoms Vital Signs: Vital Signs Temperature 98.7 F 12/01/17 06:35 Pulse Rate 80 12/01/17 06:35 Respiratory Rate 18 12/01/17 06:35 Blood Pressure 136/79 12/01/17 06:35 O2 Sat by Pulse Oximetry (%) 93 L 11/30/17 21:00 Constitutional: Yes: No Distress, Calm Eyes: Yes: Conjunctiva Clear, EOM Intact HENT: Yes: Atraumatic, Normocephalic Neck: Yes: Trachea Midline Respiratory: Yes: CTA Bilaterally Gastrointestinal: Yes: Normal Bowel Sounds, Soft Renal/: Yes: WNL Cardiovascular: Yes: Regular Rate and Rhythm JVD: No Carotid Bruit: No PMI: Non-Displaced Heart Sounds: Yes: S1, S2 Musculoskeletal: Yes: WNL Extremities: Yes: WNL Edema: No Peripheral Pulses WNL: Yes - Other Data Labs, Other Data: CBC, BMP 12/01/17 05:30 12/01/17 05:30 Troponin, BNP 11/30/17 11/30/17 11/30/17 12:29 16:30 20:30 Troponin I < 0.02 < 0.02 B-Natriuretic Peptide 5.90 12/01/17 12/01/17 05:30 10:55 Troponin I < 0.02 B-Natriuretic Peptide 9.10 Troponin, BNP 11/30/17 11/30/17 11/30/17 12:29 16:30 20:30 Troponin I < 0.02 < 0.02 B-Natriuretic Peptide 5.90 12/01/17 12/01/17 05:30 10:55 Troponin I < 0.02 B-Natriuretic Peptide 9.10 Imaging - Results Chest X-ray: Report Reviewed (toi) EKG: Report Reviewed (nsr lvh with repol no change.) Problem List - Problems (1) H/O congestive heart failure Assessment/Plan: restart all home medications. Echo to assess LV function. Code(s): Z86.79 - PERSONAL HISTORY OF OTHER DISEASES OF THE CIRCULATORY SYSTEM (2) Chest pain Assessment/Plan: Normal coronaries by cath in the past, atypical, no recent cocaine use. UTOX neg for cocaine. Stress test ordered. Add Ranexa 500 mg bid. No evidence of ACS. Code(s): R07.9 - CHEST PAIN, UNSPECIFIED Qualifiers: Chest pain type: intercostal pain Qualified Code(s): R07.82 - Intercostal pain
[2017-12-01] MEDS: LOSARTAN 50MG/HCTZ 12.5MG 1 TAB (FP) PO SCH (14:31)
--- NOTE | 2017-12-01 22:03 | EKG ---
Test Reason : Blood Pressure : / mmHG Vent. Rate : 079 BPM Atrial Rate : 079 BPM P-R Int : 172 ms QRS Dur : 104 ms QT Int : 408 ms P-R-T Axes : 050 -06 055 degrees QTc Int : 467 ms NORMAL SINUS RHYTHM MINIMAL VOLTAGE CRITERIA FOR LVH, MAY BE NORMAL VARIANT BORDERLINE ECG WHEN COMPARED WITH ECG OF 30-NOV-2017 12:10, NO SIGNIFICANT CHANGE WAS FOUND Confirmed by SUMA ANDINO MD ([id number]) on 12/01/2017 10:03:27 PM Referred By: Jose ABRAHAM Confirmed By:SUMA ANDINO MD
--- NOTE | 2017-12-01 22:12 | EKG ---
Test Reason : Blood Pressure : / mmHG Vent. Rate : 090 BPM Atrial Rate : 090 BPM P-R Int : 168 ms QRS Dur : 104 ms QT Int : 380 ms P-R-T Axes : 041 -06 047 degrees QTc Int : 464 ms NORMAL SINUS RHYTHM VOLTAGE CRITERIA FOR LEFT VENTRICULAR HYPERTROPHY ABNORMAL ECG WHEN COMPARED WITH ECG OF 11-NOV-2017 19:12, NO SIGNIFICANT CHANGE WAS FOUND Confirmed by SUMA ANDINO MD ([id number]) on 12/01/2017 10:12:38 PM Referred By: Confirmed By:SUMA ANDINO MD
[2017-12-01] MEDS: INSULIN (LEVEMIR) 100 UNITS/ML UNITS SQ SCH (22:42)
[2017-12-01] MEDS: RANOLAZINE E.R. 500 MG TABLET (FP) PO SCH (22:43)
[2017-12-01] MEDS: MELATONIN 5 MG TABLETS PO PRN (22:43)
[2017-12-01] MEDS: MIRTAZAPINE 15 MG TABLET (FP) PO SCH (22:43)
[2017-12-01] MEDS: THIAMINE HCL 100 MG TABLET (FP) PO SCH (22:43)
--- NOTE | 2017-12-02 01:27 | CONSULT ---
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 Cardio/Vascular: Yes: CAD, HTN, Hyperlipdemia, [place] Psych: Yes: Addictions (ETOH, cocaine, tobacco) Endocrine: Yes: Diabetes Mellitus - Past Surgical History Past Surgical History: Yes: Appendectomy - Alcohol/Substance Use Hx Alcohol Use: Yes History of Substance Use: reports: Cocaine, Heroin, Marijuana, Tranquilizers - Smoking History Smoking history: Current every day smoker Have you smoked in the past 12 months: Yes Aproximately how many cigarettes per day: 20 - Social History ADL: Independent Occupation: on SSI History of Recent Travel: No Home Medications - Allergies Allergies/Adverse Reactions: Allergies Allergy/AdvReac Type Severity Reaction Status Date / Time Penicillins Allergy Severe Hives Verified 11/30/17 12:28 quetiapine fumarate AdvReac Severe twitching Verified 11/30/17 12:28 [From Seroquel] - Home Medications Home Medications: Ambulatory Orders Losartan/Hydrochlorothiazide [Hyzaar 50-12.5 Tablet] 1 each PO DAILY 07/12/16 Metoprolol Succinate [Toprol XL -] 25 mg PO DAILY tab.sr.24h 07/16/16 Albuterol 2.5/Ipratropium 0.5 [Duoneb -] 1 amp NEB Q6H PRN #0 amp 05/03/17 Albuterol Sulfate Inhaler - [Ventolin HFA Inhaler -] 2 puff IH Q4H PRN #1 inhaler 05/03/17 Amlodipine Besylate 10 mg PO DAILY #30 tab 05/03/17 Aspirin [ASA -] 81 mg PO DAILY #30 tab 05/03/17 Insulin (Novolog) [Novolog] 0 units SQ TID PRN 11/11/17 Gabapentin [Neurontin -] 600 mg PO BID 11/30/17 Insulin (Levemir) [Levemir Vial] 40 unit SQ HS 11/30/17 Insulin Aspart [Novolog] 7 unit SQ BID 11/30/17 Melatonin 5 mg PO PRN PRN 11/30/17 Mirtazapine [Remeron -] 15 mg PO HS 11/30/17 Thiamine HCl [Vitamin B1] 100 mg PO HS 11/30/17 Ziprasidone HCl [Geodon] 40 mg PO BID 11/30/17 Family Disease History - Family Disease History Family Disease History: Diabetes: Mother (HTN, ho mental illness), Brother (1 brother healthy and living), Sister (2 sisters healthy and living), Son, Heart Disease: Mother, Other: Father (Father unknown), Mother Review of Systems - Review of Systems Constitutional: reports: Weakness Eyes: reports: Blurred Vision HENT: reports: No Symptoms Neck: reports: No Symptoms Cardiovascular: reports: Shortness of Breath Respiratory: reports: Exercise Intolerance, SOB on Exertion Gastrointestinal: reports: No Symptoms Musculoskeletal: reports: Back Pain, Muscle Pain Integumentary: reports: No Symptoms Neurological: reports: Weakness Endocrine: reports: Unexplained Weight Gain Physical Exam Vital Signs: Vital Signs Temperature 98.2 F 12/01/17 22:00 Pulse Rate 85 12/01/17 22:00 Respiratory Rate 16 12/01/17 22:00 Blood Pressure 140/89 12/01/17 22:00 O2 Sat by Pulse Oximetry (%) 96 12/01/17 10:00 Constitutional: Yes: Anxious Eyes: Yes: EOM Intact HENT: Yes: Normocephalic Neck: Yes: Trachea Midline Cardiovascular: Yes: Regular Rate and Rhythm Respiratory: Yes: CTA Bilaterally Gastrointestinal: Yes: Normal Bowel Sounds ...Rectal Exam: Yes: Deferred Renal/: Yes: WNL Breast(s): Yes: WNL Musculoskeletal: Yes: WNL Extremities: Yes: WNL Neurological: Yes: Alert, Oriented Labs: CBC, BMP 12/01/17 05:30 12/01/17 05:30 Problem List - Problems (1) Type 2 diabetes mellitus with autonomic neuropathy Code(s): E11.43 - TYPE 2 DIABETES W DIABETIC AUTONOMIC (POLY)NEUROPATHY Qualifiers: Diabetes mellitus residential insulin use: with residential use Qualified Code( s): E11.43 - Type 2 diabetes mellitus with diabetic autonomic (poly)neuropathy; Z79.4 - intermediate card tender (current) use of insulin (2) Alcohol abuse Code(s): F10.10 - ALCOHOL ABUSE, UNCOMPLICATED (3) Alcohol dependence Code(s): F10.20 - ALCOHOL DEPENDENCE, UNCOMPLICATED (4) Alcohol dependence with uncomplicated withdrawal Code(s): F10.230 - ALCOHOL DEPENDENCE WITH WITHDRAWAL, UNCOMPLICATED (5) Cannabis dependence, uncomplicated Code(s): F12.20 - CANNABIS DEPENDENCE, UNCOMPLICATED (6) Cocaine dependence Code(s): F14.20 - COCAINE DEPENDENCE, UNCOMPLICATED Assessment/Plan Current Active Problems Chest pain (Acute) diabetes mellitus hyperglycemia diabetic neuropathy hypertension hyperlipidemia opiod addiction Abnormal Lab Results 12/01/17 12/01/17 12/01/17 05:30 05:30 05:30 RBC 5.92 H MCV 70.2 L MCH 22.5 L Monocytes % 12.0 H Sodium 133 L Anion Gap 6 L Random Glucose 272 H Hemoglobin A1c % 9.0 H D Triglycerides 168 H Total LDL Cholesterol 119 H Laboratory Results - last 24 hr 12/01/17 12/01/17 12/01/17 05:30 05:30 05:30 WBC 5.6 RBC 5.92 H Hgb 13.3 Hct 41.5 MCV 70.2 L MCH 22.5 L MCHC 32.0 RDW 15.9 Plt Count 214 MPV 8.3 Neutrophils % 50.1 Lymphocytes % 34.2 D Monocytes % 12.0 H Eosinophils % 2.7 Basophils % 1.0 Nucleated RBC % 0 Sodium 133 L Potassium 4.4 Chloride 98 Carbon Dioxide 29 Anion Gap 6 L BUN 17 D Creatinine 0.8 Creat Clearance w eGFR > 60 POC Glucometer Random Glucose 272 H Hemoglobin A1c % 9.0 H D Calcium 9.1 Magnesium 1.9 Total Bilirubin 0.3 AST 19 ALT 52 Alkaline Phosphatase 65 Creatine Kinase Troponin I B-Natriuretic Peptide 9.10 Total Protein 7.3 Albumin 3.7 Triglycerides 168 H Cholesterol 176 Total LDL Cholesterol 119 H HDL Cholesterol 43 12/01/17 12/01/17 12/01/17 06:42 10:55 22:36 WBC RBC Hgb Hct MCV MCH MCHC RDW Plt Count MPV Neutrophils % Lymphocytes % Monocytes % Eosinophils % Basophils % Nucleated RBC % Sodium Potassium Chloride Carbon Dioxide Anion Gap BUN Creatinine Creat Clearance w eGFR POC Glucometer 251 274 Random Glucose Hemoglobin A1c % Calcium Magnesium Total Bilirubin AST ALT Alkaline Phosphatase Creatine Kinase 86 Troponin I < 0.02 B-Natriuretic Peptide Total Protein Albumin Triglycerides Cholesterol Total LDL Cholesterol HDL Cholesterol plan: levemir 20 units am levemir 40 units hs novolog ss ck hba1c nutrition consult nutrtion consult diet bgm qid novolog insulin doses
[2017-12-02] MEDS: INSULIN (LEVEMIR) 100 UNITS/ML UNITS SQ SCH (06:21)
[2017-12-02] MEDS: INSULIN SLIDING SCALE (NOVOLOG) 1 VIAL SQ SCH ×4 (06:21→22:44)
[2017-12-02] MEDS ORDERED: PT OWN MED DRAWER 7, Y5N ONE ×5 (07:06→23:57)
[2017-12-02] MEDS ORDERED: INSULIN (LEVEMIR) 100 UNITS/ML UNITS SQ ONE ×2 (07:09→22:34)
[2017-12-02] MEDS ORDERED: INSULIN (NOVOLOG) ASPART 100 UNITS/ML 10ML VIAL ONE (07:09)
[2017-12-02] MEDS ORDERED: REGADENOSON 0.4 MG/5 ML PRE-FILLED SYRINGE IVPUSH ONE ×2 (09:30→11:02)
[2017-12-02] MEDS: RANOLAZINE E.R. 500 MG TABLET (FP) PO SCH ×2 (11:00→22:04)
[2017-12-02] MEDS: GABAPENTIN 300 MG CAPSULE (FP) PO SCH ×2 (11:00→22:04)
[2017-12-02] MEDS: HEPARIN NA (PORCINE) 5,000 UNITS/ML 1ML VIAL SQ SCH ×2 (11:00→22:04)
[2017-12-02] MEDS: ZIPRASIDONE 40 MG CAPSULE (FP) PO SCH ×2 (11:00→22:04)
[2017-12-02] MEDS: ASPIRIN 81 MG CHEWABLE TABLETS PO SCH (13:21)
[2017-12-02] MEDS: amLODIPine BESYLATE 10 MG TABLET (FP) PO SCH (13:22)
[2017-12-02] MEDS: LOSARTAN 50MG/HCTZ 12.5MG 1 TAB (FP) PO SCH (13:22)
[2017-12-02] MEDS: metoPROLOL SUCCINATE 25 MG TAB.SR.24H (FP) PO SCH (13:22)
--- NOTE | 2017-12-02 13:36 | PN ---
Progress Note, Physician History of Present Illness: seen and examined today. Pt c/o chest pain on and off all day, the same as his chest pain on admission. he is s/p nuclear stress test today. - Current Medication List Current Medications: Active Medications Acetaminophen (Tylenol -) 650 mg PO Q6H PRN PRN Reason: PAIN LEVEL 1-5 Albuterol/Ipratropium (Duoneb -) 1 amp NEB Q6H PRN PRN Reason: SHORTNESS OF BREATH Amlodipine Besylate (Norvasc -) 10 mg PO DAILY [facility] Last Admin: 12/02/17 13:22 Dose: 10 mg Aspirin (Asa -) 81 mg PO DAILY [facility] Last Admin: 12/02/17 13:21 Dose: 81 mg Gabapentin (Neurontin -) 600 mg PO BID [facility] Last Admin: 12/02/17 11:00 Dose: Not Given HCTZ/Losartan Potassium (Hyzaar -) 1 tab PO DAILY [facility] Last Admin: 12/02/17 13:22 Dose: 1 tab Heparin Sodium (Porcine) (Heparin -) 5,000 unit SQ BID [facility] Last Admin: 12/02/17 11:00 Dose: Not Given Insulin Aspart (Novolog Vial Sliding Scale -) 1 vial SQ [facility]; Protocol Last Admin: 12/02/17 12:42 Dose: Not Given Insulin Detemir (Levemir Vial) 40 units SQ HS [facility] Last Admin: 12/01/17 22:42 Dose: 40 units Insulin Detemir (Levemir Vial) 20 units SQ AM [facility] Last Admin: 12/02/17 06:21 Dose: Not Given Ketorolac Tromethamine (Toradol) 10 mg PO Q6HPO PRN PRN Reason: PAIN LEVEL 7 - 10 Stop: 12/05/17 19:09 Last Admin: 11/30/17 20:16 Dose: 10 mg Melatonin (Melatonin) 5 mg PO HS PRN PRN Reason: INSOMNIA Last Admin: 12/01/17 22:43 Dose: 5 mg Metoprolol Succinate (Toprol Xl -) 25 mg PO DAILY [facility] Last Admin: 12/02/17 13:22 Dose: 25 mg Mirtazapine (Remeron -) 15 mg PO HS [facility] Last Admin: 12/01/17 22:43 Dose: 15 mg Ranolazine (Ranexa -) 500 mg PO BID [facility] Last Admin: 12/02/17 11:00 Dose: Not Given Thiamine HCl (Vitamin B1 -) 100 mg PO HS [facility] Last Admin: 12/01/17 22:43 Dose: 100 mg Ziprasidone (Geodon -) 40 mg PO BID [facility] Last Admin: 12/02/17 11:00 Dose: Not Given - Objective Vital Signs: Vital Signs Temperature 98.1 F 12/02/17 06:00 Pulse Rate 82 12/02/17 06:00 Respiratory Rate 16 12/02/17 06:00 Blood Pressure 140/82 12/02/17 06:00 O2 Sat by Pulse Oximetry (%) 96 12/02/17 05:00 Constitutional: Yes: No Distress, Calm Eyes: Yes: Conjunctiva Clear, EOM Intact, PERRL HENT: Yes: Atraumatic, Normocephalic Neck: Yes: Supple, Trachea Midline Cardiovascular: Yes: Regular Rate and Rhythm, S1, S2. No: Bradycardia, Tachycardia, Pulse Irregular, Bruit, JVD, Gallop, Murmur, Rub, S3, S4, Varicosities Respiratory: Yes: Regular, CTA Bilaterally. No: Rales, Rhonchi, Wheezes Gastrointestinal: Yes: Normal Bowel Sounds, Soft. No: Distention, Tenderness Musculoskeletal: Yes: WNL Extremities: Yes: WNL Edema: No Peripheral Pulses WNL: Yes Peripheral Pulses: Left Doralis Pedis: 2+, Right Dorsalis Pedis: 2+ Integumentary: Yes: WNL Neurological: Yes: Alert, Oriented Psychiatric: Yes: Alert, Oriented Labs: CBC, BMP 12/01/17 05:30 12/01/17 05:30 - ....Imaging Chest X-ray: Report Reviewed, Image Reviewed EKG: Report Reviewed, Image Reviewed Other: Report Reviewed, Image Reviewed (tele-NSR, no events recorded) Assessment/Plan 52 year old man with a history of alcohol, cocaine and opioid abuse, s/p [place] (in 2009), anemia, asthma, bipolar, hypothyroidism, chronic systolic CHF (last EF at 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 He reports a cardiac catheterization at [facility] with normal coronaries 2 years ago. Echo 07/13/16 normal EF Nuclear Stress Test 03/28/16 normal perfusion Chest pain-atypical but with reported h/o [place], cocaine use, HTN, DMII, and with LV dysfunction -continued chest pain today -nuclear stress test 12/02/17 showed small area of mild anterobasal ischemia and LVEF 33% -Echo 12/02/17 showed LVEF 45-50%, mild to mod global LV systolic dysfunction, no sig valvular abnl, no pericardial effusion -will plan for transfer to [facility] tomorrow for cardiac cath, keep NPO after midnight except meds, can have juice if needed for DMII -cont ASA and bblocker CHF-acute on chronic systolic CHF -reported cardiomyopathy in the past but last echo here 07/2016 showed normal EF -now severe LV dysfunction on nuclear stress test and mild to mod dysfunction on echo -cont optimal medical therapy, currently on bblocker and arb -cardiac cath tomorrow -if no sig CAD will cont optimal medical therapy as outpatient and re- evaluation of LV function
[2017-12-02 15:47] VITALS: BMI 34.1
[2017-12-02] MEDS ORDERED: morphine SULFATE 4 MG/ML VIAL IVPUSH ONE ×2 (16:00→19:00)
[2017-12-02] MEDS ORDERED: morphine CARPU-JECT 4 MG/1 ML DISP.SYRIN IVPUSH PRN (16:01)
--- NOTE | 2017-12-02 16:05 | DS ---
Physical Examination Vital Signs: Vital Signs Temperature 98.5 F 12/02/17 14:00 Pulse Rate 90 12/02/17 14:00 Respiratory Rate 18 12/02/17 14:00 Blood Pressure 145/96 12/02/17 14:00 O2 Sat by Pulse Oximetry (%) 95 12/02/17 10:00 Findings/Remarks: DISCUSSED WITH PATIENT STRESS TEST WAS POSITIVE FOR CARDIAC ISCHEMIA PATIENT AGREES TO TRANSFER TO [facility] FOR CARDIAC CATH Constitutional: Yes: Mild Distress Eyes: Yes: WNL HENT: Yes: WNL Neck: Yes: WNL Cardiovascular: Yes: WNL Respiratory: Yes: WNL Gastrointestinal: Yes: WNL Renal/: Yes: WNL Musculoskeletal: Yes: Muscle Pain, Muscle Weakness Extremities: Yes: WNL Edema: Yes Peripheral Pulses WNL: Yes Integumentary: Yes: WNL Wound/Incision: Yes: Clean/Dry Neurological: Yes: Pre-Existing Deficit ...Motor Strength: LLE, RLE Psychiatric: Yes: Other Labs: CBC, BMP 12/01/17 05:30 12/01/17 05:30 Discharge Summary Reason For Visit: CHEST PAIN Current Active Problems Chest pain (Acute) Type 2 diabetes mellitus with autonomic neuropathy (Acute) Procedures: Principal: STRESS TEST Hospital Course: ADMITTED FOR CHEST PAIN STRESS TEST CARDIAC WORKUP POSITIVE FOR ISCHEMIA WILL TRANSFER TO [facility] FOR CARDIAC CATH Condition: Stable - Instructions Diet, Activity, Other Instructions: ADA/LOW SODIUM\ RETURN TO [facility] WHEN CARDIAC CATH COMPLETE AT [facility] Referrals: Sage Soares [Primary Care Provider] - Disposition: TRANSFER ACUTE CARE/OTHER HOSP - Home Medications Comprehensive Discharge Medication List: Ambulatory Orders Losartan/Hydrochlorothiazide [Hyzaar 50-12.5 Tablet] 1 each PO DAILY 07/12/16 Metoprolol Succinate [Toprol XL -] 25 mg PO DAILY tab.sr.24h 07/16/16 Albuterol 2.5/Ipratropium 0.5 [Duoneb -] 1 amp NEB Q6H PRN #0 amp 05/03/17 Albuterol Sulfate Inhaler - [Ventolin HFA Inhaler -] 2 puff IH Q4H PRN #1 inhaler 05/03/17 Amlodipine Besylate 10 mg PO DAILY #30 tab 05/03/17 Aspirin [ASA -] 81 mg PO DAILY #30 tab 05/03/17 Insulin (Novolog) [Novolog] 0 units SQ TID PRN 11/11/17 Gabapentin [Neurontin -] 600 mg PO BID 11/30/17 Insulin (Levemir) [Levemir Vial] 40 unit SQ HS 11/30/17 Insulin Aspart [Novolog] 7 unit SQ BID 11/30/17 Melatonin 5 mg PO PRN PRN 11/30/17 Mirtazapine [Remeron -] 15 mg PO HS 11/30/17 Thiamine HCl [Vitamin B1] 100 mg PO HS 11/30/17 Ziprasidone HCl [Geodon] 40 mg PO BID 11/30/17 Acetaminophen [Tylenol .Regular Strength -] 650 mg PO Q6H PRN tablet 12/02/17 Heparin - 5,000 unit SQ BID vial 12/02/17 Insulin Sliding Scale [Novolog Vial Sliding Scale -] 1 vial SQ ACHS units 12/02 Melatonin 5 mg PO HS PRN tab 12/02/17 Morphine Injection - [Morphine Injection 4 mg/1 mL -] 4 mg IVPUSH Q4H PRN disp.syrin MDD 24 12/02/17 Ranolazine [Ranexa -] 500 mg PO BID tab 12/02/17
[2017-12-02] MEDS ORDERED: morphine SULFATE 4 MG/ML VIAL IVPUSH PRN (17:48)
[2017-12-02] MEDS ORDERED: LORazepam 1 MG TABLET PO ONE (20:42)
[2017-12-02] MEDS: MELATONIN 5 MG TABLETS PO PRN (22:04)
[2017-12-02] MEDS: THIAMINE HCL 100 MG TABLET (FP) PO SCH (22:04)
[2017-12-02] MEDS: MIRTAZAPINE 15 MG TABLET (FP) PO SCH (22:06)
--- NOTE | 2017-12-02 22:34 | HOSP ---
Subjective - Review of Symptoms Subjective: pt complains of continued left sided chest pain despite morphine. States morphine isn't helping. Reports feeling nervous about upcoming cardiac cath in am. he describes the chest pain as under his breast. Denies worsening with respiration or movement. states it is just there. Physical Examination Vital Signs: Vital Signs Temperature 98.7 F 12/02/17 18:15 Pulse Rate 85 12/02/17 18:15 Respiratory Rate 20 12/02/17 18:15 Blood Pressure 161/90 12/02/17 18:15 O2 Sat by Pulse Oximetry (%) 95 12/02/17 10:00 Constitutional: Yes: Anxious Cardiovascular: Yes: Regular Rate and Rhythm, S1, S2 Respiratory: Yes: CTA Bilaterally Gastrointestinal: Yes: Normal Bowel Sounds, Soft Labs: CBC, BMP 12/01/17 05:30 12/01/17 05:30 Hospitalist Encounter Assessment: Chest pain - will increase morphine dose to 6mg - upcoming cardiac cath discussed at length and pt reassured DM - pt npo for cardiac cath. - will reduce levemir dose 50%
[2017-12-02] MEDS: morphine SULFATE 4 MG/ML VIAL IVPUSH PRN (23:32)
[2017-12-03] MEDS: morphine SULFATE 4 MG/ML VIAL IVPUSH PRN ×2 (04:09→09:10)
[2017-12-03] MEDS ORDERED: PT OWN MED DRAWER 7, Y5N ONE (04:15)
[2017-12-03] MEDS: INSULIN SLIDING SCALE (NOVOLOG) 1 VIAL SQ SCH ×2 (06:13→12:35)
[2017-12-03] MEDS: INSULIN (LEVEMIR) 100 UNITS/ML UNITS SQ SCH (06:13)
[2017-12-03] MEDS ORDERED: INSULIN (LEVEMIR) 100 UNITS/ML UNITS SQ ONE (08:04)
[2017-12-03] MEDS ORDERED: INSULIN (NOVOLOG) ASPART 100 UNITS/ML 10ML VIAL ONE (08:04)
[2017-12-03] MEDS: amLODIPine BESYLATE 10 MG TABLET (FP) PO SCH (09:18)
[2017-12-03] MEDS: HEPARIN NA (PORCINE) 5,000 UNITS/ML 1ML VIAL SQ SCH (09:18)
[2017-12-03] MEDS: RANOLAZINE E.R. 500 MG TABLET (FP) PO SCH (09:18)
[2017-12-03] MEDS: GABAPENTIN 300 MG CAPSULE (FP) PO SCH (09:18)
[2017-12-03] MEDS: LOSARTAN 50MG/HCTZ 12.5MG 1 TAB (FP) PO SCH (09:18)
[2017-12-03] MEDS: ASPIRIN 81 MG CHEWABLE TABLETS PO SCH (09:18)
[2017-12-03] MEDS: ZIPRASIDONE 40 MG CAPSULE (FP) PO SCH (09:18)
[2017-12-03] MEDS: metoPROLOL SUCCINATE 25 MG TAB.SR.24H (FP) PO SCH (09:18)
[2017-12-03 09:27] VITALS: BP 139/99; PULSE 94; TEMP 98.3
--- NOTE | 2017-12-03 09:31 | PN ---
Progress Note, Physician History of Present Illness: Seen and examined today in nad. continued chest pain yesterday afternoon. comfortable this am. no new complaints. - Current Medication List Current Medications: Active Medications Acetaminophen (Tylenol -) 650 mg PO Q6H PRN PRN Reason: PAIN LEVEL 1-5 Albuterol/Ipratropium (Duoneb -) 1 amp NEB Q6H PRN PRN Reason: SHORTNESS OF BREATH Amlodipine Besylate (Norvasc -) 10 mg PO DAILY [facility] Last Admin: 12/03/17 09:18 Dose: 10 mg Aspirin (Asa -) 81 mg PO DAILY [facility] Last Admin: 12/03/17 09:18 Dose: 81 mg Gabapentin (Neurontin -) 600 mg PO BID [facility] Last Admin: 12/03/17 09:18 Dose: 600 mg HCTZ/Losartan Potassium (Hyzaar -) 1 tab PO DAILY [facility] Last Admin: 12/03/17 09:18 Dose: 1 tab Heparin Sodium (Porcine) (Heparin -) 5,000 unit SQ BID [facility] Last Admin: 12/03/17 09:18 Dose: 5,000 unit Insulin Aspart (Novolog Vial Sliding Scale -) 1 vial SQ [facility]; Protocol Last Admin: 12/03/17 06:13 Dose: Not Given Insulin Detemir (Levemir Vial) 40 units SQ HS [facility] Last Admin: 12/01/17 22:42 Dose: 40 units Insulin Detemir (Levemir Vial) 20 units SQ AM [facility] Last Admin: 12/03/17 06:13 Dose: Not Given Ketorolac Tromethamine (Toradol) 10 mg PO Q6HPO PRN PRN Reason: PAIN LEVEL 7 - 10 Stop: 12/05/17 19:09 Last Admin: 11/30/17 20:16 Dose: 10 mg Melatonin (Melatonin) 5 mg PO HS PRN PRN Reason: INSOMNIA Last Admin: 12/02/17 22:04 Dose: 5 mg Metoprolol Succinate (Toprol Xl -) 25 mg PO DAILY [facility] Last Admin: 12/03/17 09:18 Dose: 25 mg Mirtazapine (Remeron -) 15 mg PO HS [facility] Last Admin: 12/02/17 22:06 Dose: 15 mg Morphine Sulfate (Morphine Sulfate) 6 mg IVPUSH Q4H PRN PRN Reason: PAIN LEVEL 6-10 Last Admin: 12/03/17 09:10 Dose: 6 mg Ranolazine (Ranexa -) 500 mg PO BID [facility] Last Admin: 12/03/17 09:18 Dose: 500 mg Thiamine HCl (Vitamin B1 -) 100 mg PO HS [facility] Last Admin: 12/02/17 22:04 Dose: 100 mg Ziprasidone (Geodon -) 40 mg PO BID [facility] Last Admin: 12/03/17 09:18 Dose: Not Given - Objective Vital Signs: Vital Signs Temperature 98.3 F 12/03/17 09:26 Pulse Rate 94 H 12/03/17 09:26 Respiratory Rate 16 12/03/17 09:26 Blood Pressure 139/99 12/03/17 09:26 O2 Sat by Pulse Oximetry (%) 95 12/02/17 21:00 Constitutional: Yes: No Distress, Calm Eyes: Yes: Conjunctiva Clear, EOM Intact HENT: Yes: Atraumatic, Normocephalic Neck: Yes: Supple, Trachea Midline Cardiovascular: Yes: Regular Rate and Rhythm, S1, S2. No: Bradycardia, Tachycardia, Pulse Irregular, Bruit, JVD, Gallop, Murmur, Rub, S3, S4, Varicosities Respiratory: Yes: Regular, CTA Bilaterally. No: Rales, Rhonchi, SOB, Wheezes Gastrointestinal: Yes: WNL, Normal Bowel Sounds, Soft. No: Distention, Tenderness Musculoskeletal: Yes: WNL Extremities: Yes: WNL Edema: No Peripheral Pulses WNL: Yes Peripheral Pulses: Left Doralis Pedis: 2+, Right Dorsalis Pedis: 2+ Integumentary: Yes: WNL Neurological: Yes: Alert, Oriented Psychiatric: Yes: Alert, Oriented Labs: CBC, BMP 12/01/17 05:30 12/01/17 05:30 - ....Imaging Chest X-ray: Report Reviewed, Image Reviewed EKG: Report Reviewed, Image Reviewed Other: Report Reviewed, Image Reviewed (tele-nsr, no events recorded) Assessment/Plan 52 year old man with a history of alcohol, cocaine and opioid abuse, s/p [place] (in 2009), anemia, asthma, bipolar, hypothyroidism, chronic systolic CHF (last EF at R normal in 2017) 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 He reports a cardiac catheterization at [facility] with normal coronaries 2 years ago. Echo 07/13/16 normal EF Nuclear Stress Test 03/28/16 normal perfusion Chest pain-atypical but with reported h/o [place], cocaine use, HTN, DMII, and with LV dysfunction -continued chest pain yesterday -nuclear stress test 12/02/17 showed small area of mild anterobasal ischemia and LVEF 33% -Echo 12/02/17 showed LVEF 45-50%, mild to mod global LV systolic dysfunction, no sig valvular abnl, no pericardial effusion -plan for transfer to [facility] today for cardiac cath, keep NPO after midnight except meds, can have juice if needed for DMII -pt states that he has not used cocaine in 2 years, his issue now is etoh abuse -cont ASA and bblocker CHF-acute on chronic systolic CHF -reported cardiomyopathy in the past but last echo here 07/2016 showed normal EF -now severe LV dysfunction on nuclear stress test and mild to mod dysfunction on echo -cont optimal medical therapy, currently on bblocker and arb -cardiac cath planned for today -if no sig CAD will cont optimal medical therapy as outpatient and re- evaluation of LV function -pt will re-enroll in etoh rehab on discharge as his substance abuse is likely source of his cardiomyopathy
== END 2017-12-03 12:38 | disposition short-term general hospital (02) | DRG 198 ==
LOC: JER 11:56 → JERBED 14:26 → J4S 18:20 → OBSVTOIN 12-01 10:00
PROVIDERS: ADMIT Family Medicine; ATTEND Family Medicine
DX: I24.9 Acute ischemic heart disease, unspecified (principal); I25.10 Atherosclerotic heart disease of native coronary artery without angina pectoris; I11.0 Hypertensive heart disease with heart failure; I50.23 Acute on chronic systolic (congestive) heart failure; R07.89 Other chest pain; E11.43 Type 2 diabetes mellitus with diabetic autonomic (poly)neuropathy; E11.65 Type 2 diabetes mellitus with hyperglycemia; E78.5 Hyperlipidemia, unspecified; F17.210 Nicotine dependence, cigarettes, uncomplicated; I42.9 Cardiomyopathy, unspecified; E03.9 Hypothyroidism, unspecified; F11.10 Opioid abuse, uncomplicated; I25.2 Old myocardial infarction; F10.10 Alcohol abuse, uncomplicated; F14.10 Cocaine abuse, uncomplicated; F31.9 Bipolar disorder, unspecified; D64.9 Anemia, unspecified; J45.909 Unspecified asthma, uncomplicated
CPT/HCPCS: 36415; 71045-TC-FY; 78452-TC; 80053; 80061; 80307; 82550; 82962; 83036; 83721; 83735; 83880; 84484; 85025; 93005; 93010; 93017; 93306-TC; 99284-25; A9502; C1887; G0378; J1644; J2785